=== PATIENT | male | born 1950 | race Caucasian/White ===

== ENCOUNTER 2017-09-09 12:25 | Inpatient (IN) | payer MEDICARE, BC ==
[~2017-09-09] VITALS: Ht 167.6 cm; Wt 92.8 kg
[~2017-09-09 12:25] MED LIST: DOCU100 PO; MAGCIT300 PO; [UNRECOGNIZED DRUG - REMARK]; [UNRECOGNIZED DRUG - REMARK]; [UNRECOGNIZED DRUG - REMARK]
[2017-09-09 13:02] LABS: BASOPHILS ABSOLUTE AUTO 0.05 K/mm3 (0.00-0.23); BASOPHILS PERCENT AUTO 0 % (0-2); EOSINOPHILS ABSOLUTE AUTO 0.17 K/mm3 (0.00-0.68); EOSINOPHILS PERCENT AUTO 1 % (0-6); Hematocrit 41.4 % (37.0-53.0); Hemoglobin 13.8 g/dL (13.5-17.5); IMMATURE GRAN ABSOLUTE AUTO 0.07 K/mm3 (0.00-0.10); IMMATURE GRAN PERCENT AUTO 0 % (0-1); LYMPHOCYTES PERCENT AUTO 11 % (21-46); MONOCYTES ABSOLUTE AUTO 1.56 K/mm3 (0.16-1.47); MONOCYTES PERCENT AUTO 10 % (4-13); Mean Corpuscular HGB 33.1 pg (26.0-34.0); Mean Corpuscular HGB Conc 33.3 g/dL (31.5-36.5); Mean Corpuscular Volume 99 fL (80-100); Mean Platelet Volume 9.7 fL (9.1-12.4); NEUTROPHILS ABSOLUTE AUTO 12.48 K/mm3 (1.96-9.15); NEUTROPHILS PERCENT AUTO 78 % (41-73); Platelet Count 168 K/mm3 (150-400); RDW Coefficient Variation 12.7 % (11.7-14.2); Red Blood Cell Count 4.17 M/mm3 (4.30-5.90); White Blood Cell Count 16.03 K/mm3 (4.00-11.30)
[2017-09-09 13:19] LABS: Ethanol (Alcohol), Blood, Med <3 mg/dL
[2017-09-09 13:21] LABS: Source, Urine Catheter
[2017-09-09 13:27] LABS: Appearance, Urine Clear (Clear); Blood, Urine 1+ (Neg); Color, Urine Yellow (P-Yellow); Glucose Qualitative, Urine Neg (Neg); Ketones, Urine Neg (Neg); Leukocyte Esterase, Urine 1+ (Neg); Nitrite, Urine Neg (Neg); Protein, Urine 2+ (Neg); Urobilinogen, Urine NORM (Normal)
[2017-09-09 13:29] LABS: Alanine Aminotransfer (ALT/SGP 27 U/L (12-78); Albumin, Blood 3.4 g/dL (3.4-5.0); Albumin/Globulin Ratio 0.9 (0.8-1.8); Alk Phos 69 U/L (50-136); Anion Gap 9 mmol/L (6-16); Aspartate Aminotrans (AST/SGOT 35 U/L (12-37); Bilirubin, Total 0.7 mg/dL (0.1-1.0); Blood Urea Nitrogen 57 mg/dL (8-24); Bun/Creatinine Ratio 10.4 (12.0-20.0); CO2, Blood 22 mmol/L (21-32); Calcium, Blood 8.3 mg/dL (8.5-10.1); Chloride, Blood 98 mmol/L (98-108); Creatinine, Blood 5.46 mg/dL (0.60-1.20); Globulin, Blood 3.6 g/dL (2.2-4.0); Glomerular Filtration Rate 11 (60-); Glucose, Blood 112 mg/dL (70-99); Potassium, Blood 5.1 mmol/L (3.5-5.5); Sodium, Blood 129 mmol/L (136-145)
[2017-09-09] MEDS ORDERED: MORP15ER PO (13:39)
[2017-09-09] MEDS ORDERED: Hydrocodone-Ap1 EA23 PO (13:39)
[2017-09-09] MEDS ORDERED: PREG75 PO (13:39)
[2017-09-09] MEDS ORDERED: Prinivil10 MG PO (13:39)
[2017-09-09] MEDS ORDERED: TIOT18 INH (13:40)
[2017-09-09] MEDS ORDERED: GABA300 PO (13:40)
[2017-09-09] MEDS ORDERED: BUDE10.22 INH (13:40)
[2017-09-09 14:02] LABS: Bilirubin, Urine 1+ (Neg); U Amphetamine Screen Not Detected; U Barbituate Screen Not Detected; U Benzodiazapine Screen Not Detected; U Buprenorphine Screen Not Detected; U Cannabinoids Screen Not Detected; U Cocaine Screen Not Detected; U Methadone Screen Not Detected; U Methamphetamine Screen Not Detected; U Opiates Screen DETECTED; U Oxycodone Screen Not Detected; U Phencyclidine Screen Not Detected; U Propoxyphene Screen Not Detected
[2017-09-09 14:04] LABS: Amorphous Light (0-Heavy); Bacteria Few /hpf; Squamous Epithelial Cells Rare /hpf (Few)
[2017-09-09 15:35] LABS: Acetaminophen, Random <2.0 ug/mL (10.0-30.0); Salicylate 2.7 mg/dL (2.8-20.0)
[2017-09-09] MEDS ORDERED: DULO30 PO (16:38)
[2017-09-09] MEDS ORDERED: HYDHCL25 PO (16:38)
[2017-09-09] MEDS ORDERED: IBUP800 PO (16:39)
[2017-09-09] MEDS ORDERED: Zyprexa20 MG PO (16:40)
[2017-09-09] MEDS ORDERED: LITH300C PO (16:40)
[2017-09-10 04:18] LABS: BASOPHILS ABSOLUTE AUTO 0.03 K/mm3 (0.00-0.23); BASOPHILS PERCENT AUTO 0 % (0-2); EOSINOPHILS ABSOLUTE AUTO 0.04 K/mm3 (0.00-0.68); EOSINOPHILS PERCENT AUTO 0 % (0-6); Hematocrit 37.9 % (37.0-53.0); Hemoglobin 12.5 g/dL (13.5-17.5); IMMATURE GRAN ABSOLUTE AUTO 0.08 K/mm3 (0.00-0.10); IMMATURE GRAN PERCENT AUTO 1 % (0-1); LYMPHOCYTES ABSOLUTE AUTO 1.97 K/mm3 (0.84-5.20); LYMPHOCYTES PERCENT AUTO 16 % (21-46); MONOCYTES ABSOLUTE AUTO 1.41 K/mm3 (0.16-1.47); MONOCYTES PERCENT AUTO 11 % (4-13); Mean Corpuscular Volume 100 fL (80-100); Mean Platelet Volume 9.9 fL (9.1-12.4); NEUTROPHILS ABSOLUTE AUTO 8.98 K/mm3 (1.96-9.15); NEUTROPHILS PERCENT AUTO 72 % (41-73); Platelet Count 130 K/mm3 (150-400); RDW Coefficient Variation 12.7 % (11.7-14.2); RDW Standard Deviation 46.7 fL (35.1-46.3); Red Blood Cell Count 3.79 M/mm3 (4.30-5.90); White Blood Cell Count 12.51 K/mm3 (4.00-11.30)
[2017-09-10 04:41] LABS: Alanine Aminotransfer (ALT/SGP 25 U/L (12-78); Albumin, Blood 2.9 g/dL (3.4-5.0); Albumin/Globulin Ratio 0.9 (0.8-1.8); Alk Phos 58 U/L (50-136); Anion Gap 7 mmol/L (6-16); Aspartate Aminotrans (AST/SGOT 37 U/L (12-37); Bilirubin, Total 0.7 mg/dL (0.1-1.0); Blood Urea Nitrogen 37 mg/dL (8-24); Bun/Creatinine Ratio 25.2 (12.0-20.0); CHOL/HDL RATIO 2.2; CO2, Blood 20 mmol/L (21-32); Calcium, Blood 7.6 mg/dL (8.5-10.1); Chloride, Blood 110 mmol/L (98-108); Cholesterol 123 mg/dL (50-200); Creatinine, Blood 1.47 mg/dL (0.60-1.20); Globulin, Blood 3.4 g/dL (2.2-4.0); Glomerular Filtration Rate 51 (60-); Glucose, Blood 96 mg/dL (70-99); HDL Cholesterol 56 mg/dL (>39); LDL/HDL RATIO 0.9; Low Density Lipoprotein Chol 52 mg/dL (0-110); Potassium, Blood 5.1 mmol/L (3.5-5.5); Sodium, Blood 137 mmol/L (136-145); Total Protein, Blood 6.3 g/dL (6.4-8.2); Triglycerides 77 mg/dL (30-160); Vancomycin, Random 10.3 ug/mL; Very Low Density Lipoprot Chol 15 mg/dL (6-32)
[2017-09-11 09:20] LABS: Hematocrit 35.8 % (37.0-53.0); Hemoglobin 12.1 g/dL (13.5-17.5); Mean Corpuscular HGB 33.1 pg (26.0-34.0); Mean Corpuscular HGB Conc 33.8 g/dL (31.5-36.5); Mean Corpuscular Volume 98 fL (80-100); Mean Platelet Volume 9.8 fL (9.1-12.4); Platelet Count 134 K/mm3 (150-400); RDW Coefficient Variation 12.2 % (11.7-14.2); Red Blood Cell Count 3.66 M/mm3 (4.30-5.90); White Blood Cell Count 12.56 K/mm3 (4.00-11.30)
[2017-09-11 09:34] LABS: Anion Gap 9 mmol/L (6-16); Blood Urea Nitrogen 19 mg/dL (8-24); Bun/Creatinine Ratio 23.9 (12.0-20.0); CO2, Blood 19 mmol/L (21-32); Calcium, Blood 8.2 mg/dL (8.5-10.1); Chloride, Blood 115 mmol/L (98-108); Creatinine, Blood 0.79 mg/dL (0.60-1.20); Glomerular Filtration Rate >60 (60-); Glucose, Blood 107 mg/dL (70-99); Sodium, Blood 143 mmol/L (136-145)
[2017-09-11 13:38] LABS: Lithium 0.29 mmol/L (0.60-1.20)
[2017-09-13 05:10] LABS: Anion Gap 8 mmol/L (6-16); Blood Urea Nitrogen 9 mg/dL (8-24); Bun/Creatinine Ratio 14.5 (12.0-20.0); CO2, Blood 23 mmol/L (21-32); Calcium, Blood 8.6 mg/dL (8.5-10.1); Chloride, Blood 110 mmol/L (98-108); Creatinine, Blood 0.62 mg/dL (0.60-1.20); Glomerular Filtration Rate >60 (60-); Glucose, Blood 104 mg/dL (70-99); Potassium, Blood 3.9 mmol/L (3.5-5.5); Sodium, Blood 141 mmol/L (136-145)
[2017-09-15 04:20] LABS: Hematocrit 31.5 % (37.0-53.0); Hemoglobin 10.9 g/dL (13.5-17.5); Mean Corpuscular HGB Conc 34.6 g/dL (31.5-36.5); Mean Corpuscular Volume 96 fL (80-100); Mean Platelet Volume 9.4 fL (9.1-12.4); Platelet Count 123 K/mm3 (150-400); RDW Coefficient Variation 12.1 % (11.7-14.2); RDW Standard Deviation 42.8 fL (35.1-46.3); White Blood Cell Count 11.24 K/mm3 (4.00-11.30)
[2017-09-15 04:44] LABS: Anion Gap 8 mmol/L (6-16); Blood Urea Nitrogen 10 mg/dL (8-24); Bun/Creatinine Ratio 16.8 (12.0-20.0); CO2, Blood 26 mmol/L (21-32); Calcium, Blood 7.9 mg/dL (8.5-10.1); Chloride, Blood 109 mmol/L (98-108); Glomerular Filtration Rate >60 (60-); Glucose, Blood 94 mg/dL (70-99); Potassium, Blood 3.4 mmol/L (3.5-5.5); Sodium, Blood 143 mmol/L (136-145)
[2017-09-18] MEDS ORDERED: MELA3 PO ×2 (11:25)
[2017-09-18] MEDS ORDERED: AMLO5 PO (11:26)
[2017-09-18 13:48] LABS: BASOPHILS ABSOLUTE AUTO 0.03 K/mm3 (0.00-0.23); BASOPHILS PERCENT AUTO 0 % (0-2); EOSINOPHILS ABSOLUTE AUTO 0.27 K/mm3 (0.00-0.68); EOSINOPHILS PERCENT AUTO 4 % (0-6); Hematocrit 35.5 % (37.0-53.0); Hemoglobin 11.9 g/dL (13.5-17.5); IMMATURE GRAN ABSOLUTE AUTO 0.04 K/mm3 (0.00-0.10); IMMATURE GRAN PERCENT AUTO 1 % (0-1); LYMPHOCYTES ABSOLUTE AUTO 1.58 K/mm3 (0.84-5.20); LYMPHOCYTES PERCENT AUTO 23 % (21-46); MONOCYTES ABSOLUTE AUTO 0.67 K/mm3 (0.16-1.47); MONOCYTES PERCENT AUTO 10 % (4-13); Mean Corpuscular HGB 32.3 pg (26.0-34.0); Mean Corpuscular HGB Conc 33.5 g/dL (31.5-36.5); Mean Corpuscular Volume 97 fL (80-100); Mean Platelet Volume 8.9 fL (9.1-12.4); NEUTROPHILS ABSOLUTE AUTO 4.25 K/mm3 (1.96-9.15); NEUTROPHILS PERCENT AUTO 62 % (41-73); Platelet Count 197 K/mm3 (150-400); RDW Coefficient Variation 12.2 % (11.7-14.2); RDW Standard Deviation 43.2 fL (35.1-46.3); Red Blood Cell Count 3.68 M/mm3 (4.30-5.90); White Blood Cell Count 6.84 K/mm3 (4.00-11.30)
[2017-09-18 14:33] LABS: Lithium 0.33 mmol/L (0.60-1.20)
[2017-09-18 14:41] LABS: Albumin, Blood 2.4 g/dL (3.4-5.0); Anion Gap 6 mmol/L (6-16); Blood Urea Nitrogen 9 mg/dL (8-24); Bun/Creatinine Ratio 12.4 (12.0-20.0); CO2, Blood 29 mmol/L (21-32); Calcium, Blood 8.7 mg/dL (8.5-10.1); Chloride, Blood 105 mmol/L (98-108); Creatinine, Blood 0.73 mg/dL (0.60-1.20); Free Thyroxine 1.38 ng/dL (0.70-1.60); Glomerular Filtration Rate >60 (60-); Glucose, Blood 127 mg/dL (70-99); Phosphorus, Blood 2.5 mg/dL (2.5-4.9); Potassium, Blood 3.7 mmol/L (3.5-5.5); Sodium, Blood 140 mmol/L (136-145)
[2017-09-18 14:46] LABS: Triiodothyronine, Free 2.07 pg/mL (2.18-3.98)
[2017-09-19] MEDS ORDERED: ASPERCREME1 EACH TOP (11:57)
[2017-09-19] MEDS ORDERED: HYDR1TAB94 PO (11:57)
== END 2017-09-19 12:35 | DRG 871 ==
LOC: ER 12:25 → ICUW 15:11 → MEDS 15:11 → PCU 15:11 → ICUW 09-10 13:55 → PCU 09-15 16:35 → MEDS 09-17 18:42 → ENPENDDIS 09-19 11:00 → MEDS 09-19 12:35
PROVIDERS: Family Medicine; Internal Medicine
DX: A41.9 Sepsis, unspecified organism (principal); G92 Toxic encephalopathy; N17.9 Acute kidney failure, unspecified; E87.1 Hypo-osmolality and hyponatremia; F11.20 Opioid dependence, uncomplicated; S09.90XA Unspecified injury of head, initial encounter; E86.0 Dehydration; F10.20 Alcohol dependence, uncomplicated; F31.9 Bipolar disorder, unspecified; I10 Essential (primary) hypertension; G89.4 Chronic pain syndrome; W19.XXXA Unspecified fall, initial encounter; R44.1 Visual hallucinations
CPT/HCPCS: 31720; 36415; 51701; 51702; 51798; 70450; 70551; 71045; 71046; 80048; 80053; 80061; 80069; 80178; 80202; 81001; 82140; 82947; 83605; 84145; 84439; 84443; 84481; 85025; 85027; 85651; 86140; 87040; 87086; 92610; 93005; 93010; 94640; 94760; 96361; 96374; 97110; 97116; 97163; 97166; 97530; 97535; 99285; G0480; G8978; G8979; G8987; G8988; G8996; G8997; G8998; J0360; J0696; J1630; J1650; J2001; J2060; J3010; J3370; J3411; J3475; J3480; J7030; J7042; J7050

== ENCOUNTER 2017-09-19 13:56 | Observation (INO) | payer MEDICARE, BC ==
[~2017-09-19] VITALS: Ht 180.3 cm; Wt 86.7 kg
[~2017-09-19 13:56] MED LIST changes: +AMLO5 PO; +ASPERCREME1 EACH TOP; +BUDE10.22 INH; +DULO30 PO; +GABA300 PO; +HYDHCL25 PO; +HYDR1TAB94 PO; +Hydrocodone-Ap1 EA23 PO; +IBUP800 PO; +LITH300C PO; +MELA3 PO; +MORP15ER PO; +PREG75 PO; +Prinivil10 MG PO; +TIOT18 INH; +Zyprexa20 MG PO
[2017-09-19 16:25] LABS: Calcium, Ionized (POC) 1.15 mmol/L (1.10-1.46); Chloride (POC) 102 mmol/L (98-108); Creatinine (POC) 0.6 mg/dL (0.8-1.3); Glucose (ISTAT POC) 104 mg/dL (70-99); Hemoglobin (POC) 12.9 g/dL (13.5-17.5); Potassium (POC) 3.9 mmol/L (3.5-5.5); Sodium (POC) 138 mmol/L (135-148); Total CO2 (POC) 27 mmol/L (21-32)
[2017-09-26] MEDS ORDERED: QUET100 PO (14:55)
== END 2017-09-26 15:20 | disposition home or self-care (01) ==
LOC: ER 13:56 → MEDS 13:57
PROVIDERS: Emergency Medicine
DX: G92 Toxic encephalopathy (principal); N17.9 Acute kidney failure, unspecified; I10 Essential (primary) hypertension; G89.29 Other chronic pain; F31.9 Bipolar disorder, unspecified; M17.12 Unilateral primary osteoarthritis, left knee; F41.8 Other specified anxiety disorders; R26.9 Unspecified abnormalities of gait and mobility; K59.00 Constipation, unspecified; M19.012 Primary osteoarthritis, left shoulder; M19.011 Primary osteoarthritis, right shoulder; R26.2 Difficulty in walking, not elsewhere classified; R44.1 Visual hallucinations; Z88.8 Allergy status to other drugs, medicaments and biological substances; Z79.899 Other long term (current) drug therapy; W19.XXXA Unspecified fall, initial encounter
CPT/HCPCS: 36415; 80047; 85014; 94640; 94760; 97110; 97116; 97162; 97165; 97535; 99285; G0378; G0515; G8978; G8979; G8987; G8988

== ENCOUNTER 2019-01-18 21:38 | Inpatient (IN) | payer MEDICARE ==
[~2019-01-18] VITALS: Ht 172.7 cm; Wt 116.3 kg
[~2019-01-18 21:38] MED LIST changes: +Atarax10 MG; +BUSP5; +HYDCHL25 PO; +LISI5 PO; +LITH300C; +Lasix40 MG PO; +MAGOXI400 PO; +Norco 10-325 T1 EACH PO; +QUET100 PO
[2019-01-18 22:07] LABS: BASOPHILS ABSOLUTE AUTO 0.06 K/mm3 (0.00-0.23); BASOPHILS PERCENT AUTO 1 % (0-2); EOSINOPHILS ABSOLUTE AUTO 0.31 K/mm3 (0.00-0.68); EOSINOPHILS PERCENT AUTO 3 % (0-6); Hematocrit 37.4 % (37.0-53.0); Hemoglobin 12.1 g/dL (13.5-17.5); IMMATURE GRAN ABSOLUTE AUTO 0.05 K/mm3 (0.00-0.10); IMMATURE GRAN PERCENT AUTO 1 % (0-1); LYMPHOCYTES PERCENT AUTO 19 % (21-46); MONOCYTES ABSOLUTE AUTO 1.02 K/mm3 (0.16-1.47); MONOCYTES PERCENT AUTO 9 % (4-13); Mean Corpuscular HGB 34.6 pg (26.0-34.0); Mean Corpuscular HGB Conc 32.4 g/dL (31.5-36.5); Mean Corpuscular Volume 107 fL (80-100); Mean Platelet Volume 9.7 fL (9.1-12.4); NEUTROPHILS ABSOLUTE AUTO 7.45 K/mm3 (1.96-9.15); NEUTROPHILS PERCENT AUTO 68 % (41-73); Platelet Count 224 K/mm3 (150-400); RDW Coefficient Variation 13.2 % (11.7-14.2); RDW Standard Deviation 52.5 fL (35.1-46.3); White Blood Cell Count 10.99 K/mm3 (4.00-11.30)
[2019-01-18 22:21] LABS: Alanine Aminotransfer (ALT/SGP 17 U/L (12-78); Albumin, Blood 3.6 g/dL (3.4-5.0); Albumin/Globulin Ratio 1.1 (0.8-1.8); Alk Phos 92 U/L (50-136); Anion Gap 6 mmol/L (6-16); Aspartate Aminotrans (AST/SGOT 15 U/L (12-37); Bilirubin, Total 0.6 mg/dL (0.1-1.0); Blood Urea Nitrogen 22 mg/dL (8-24); Bun/Creatinine Ratio 12.9 (12.0-20.0); CO2, Blood 29 mmol/L (21-32); Calcium, Blood 8.4 mg/dL (8.5-10.1); Chloride, Blood 102 mmol/L (98-108); Globulin, Blood 3.2 g/dL (2.2-4.0); Glomerular Filtration Rate 43 (60-); Glucose, Blood 101 mg/dL (70-99); Potassium, Blood 4.4 mmol/L (3.5-5.5); Sodium, Blood 137 mmol/L (136-145); Total Protein, Blood 6.8 g/dL (6.4-8.2); Troponin I <0.015 ng/mL (0.000-0.040)
[2019-01-18 22:49] LABS: PCO2 Arterial 52.5 mmHg (35-45); PO2 Arterial 79.9 mmHg (80-100); pH Blood Arterial 7.35 (7.35-7.45)
[2019-01-19 03:21] LABS: Adenovirus Not Detected (NOT DETECT); Bordetella pertussis Not Detected (NOT DETECT); Chlamydophila pneumoniae Not Detected (NOT DETECT); Coronavirus 229E Not Detected (NOT DETECT); Coronavirus HKU1 Not Detected (NOT DETECT); Coronavirus NL63 Not Detected (NOT DETECT); Coronavirus OC43 Not Detected (NOT DETECT); Human Metapneumovirus Not Detected (NOT DETECT); Human Rhinovirus/Enterovirus Not Detected (NOT DETECT); Influenza A Not Detected (NOT DETECT); Influenza A/2009-H1 Not Detected (NOT DETECT); Influenza A/H1 Not Detected (NOT DETECT); Influenza A/H3 Not Detected (NOT DETECT); Influenza B Not Detected (NOT DETECT); Mycoplasma pneumoniae Not Detected (NOT DETECT); Parainfluenza Virus 1 Not Detected (NOT DETECT); Parainfluenza Virus 2 Not Detected (NOT DETECT); Parainfluenza Virus 3 Not Detected (NOT DETECT); Parainfluenza Virus 4 Not Detected (NOT DETECT); Respiratory Syncytial Virus Not Detected (NOT DETECT)
[2019-01-19 06:27] LABS: Hematocrit 38.8 % (37.0-53.0); Hemoglobin 12.7 g/dL (13.5-17.5); Mean Corpuscular HGB 34.9 pg (26.0-34.0); Mean Corpuscular HGB Conc 32.7 g/dL (31.5-36.5); Mean Corpuscular Volume 107 fL (80-100); Mean Platelet Volume 9.7 fL (9.1-12.4); Platelet Count 224 K/mm3 (150-400); RDW Standard Deviation 51.3 fL (35.1-46.3); Red Blood Cell Count 3.64 M/mm3 (4.30-5.90); White Blood Cell Count 10.56 K/mm3 (4.00-11.30)
[2019-01-19 06:57] LABS: Albumin, Blood 3.4 g/dL (3.4-5.0); Albumin/Globulin Ratio 0.9 (0.8-1.8); Bilirubin, Total 0.6 mg/dL (0.1-1.0); Bun/Creatinine Ratio 18.1 (12.0-20.0); Calcium, Blood 8.5 mg/dL (8.5-10.1); Creatinine, Blood 1.44 mg/dL (0.60-1.20); Globulin, Blood 3.8 g/dL (2.2-4.0); Potassium, Blood 4.8 mmol/L (3.5-5.5); Total Protein, Blood 7.2 g/dL (6.4-8.2)
[2019-01-19 07:26] LABS: Lithium 1.64 mmol/L (0.60-1.20)
--- NOTE | 2019-01-19 07:36 | NUR ---
CRITICAL LITHIUM LEVEL LAB NOTIFIED RN OF CRITICAL LITHIUM LEVEL THIS AM OF 1.64 DURING SHIFT CHANGE REPORT. ONCOMING RN MARLA HEBERT STATED SHE WOULD NOTIFY THE DR OF THE CRTICIAL LITHIUM LEVEL THIS MORNING.
--- NOTE | 2019-01-19 07:39 | NUR ---
ADMIT NOTE/SHIFT ASSESSMENT PATIENT ADMITTED EARLIER THIS SHIFT FROM THE ER. PATIENT WAS SLID OVER FROM THE GURNEY TO THE BED VIA SLIDER SHEET. PATIENT DROWSY BUT EASILY AWAKENS TO VERBAL STIMULI AND TO TOUCH UPON ADMIT. PATIENT ABLE TO STATE NAME AND BIRTHDATE BUT UNABLE TO STATE WHERE HE IS, WHY HE'S HERE, OR WHO THE PRESIDENT IS. PATIENT'S BREATHING LABORED UPON ADMIT. PATIENT WORE BIPAP FOR SEVERAL HOURS AFTER ADMIT. THIS MORNING PATIENT OFF BIPAP ON 2L O2 AND HIS BREATHING IS MUCH LESS LABORED. PATIENT REPORTS HE IS FEELING MUCH BETTER. PATIENT AWARE OF WHERE HE IS AND WHY HE'S HERE THIS MORNING. PATIENT CURRENTLY RESTING IN BED. REPORT GIVEN TO ONCOMING RN.
--- NOTE | 2019-01-19 07:52 | NUR ---
RECEIVED REPORT AND ASSUMED CARE OF PATIENT. HE IS SITTING UP IN BED AND HAS SOME CONFUSION AT THIS TIME. NOTED TREMOR IN HANDS B/L, ASKED PT IF THAT IS NEW FOR HIM, HE STATES, "I'VE HAD THIS FOR A FEW WEEKS, IT'S GETTING WORSE AND I CAN'T DO THINGS VERY WELL." NOTIFIED DR CAMPO OF CRITICAL HIGH LITHIUM LEVEL 1.64, WILL CONTINUE TO MONITOR AND AWAIT ADDITIONAL ORDERS FROM DR. HENOK TALAVERA PER DOCTOR.
--- NOTE | 2019-01-19 07:59 | NUR ---
DR CAMPO ORDERED LR TO START AT 150 ML/HR. ORDERED PLACED BY THIS RN, WILL AWAIT VERIFICATION AND START.
--- NOTE | 2019-01-19 12:17 | NUR ---
echocardiogram complete
[2019-01-19 17:17] LABS: Source, Urine Clean Catch
[2019-01-19 17:25] LABS: Bilirubin, Urine Neg (Neg); Blood, Urine Neg (Neg); Glucose Qualitative, Urine Neg (Neg); Ketones, Urine Neg (Neg); Leukocyte Esterase, Urine Neg (Neg); Nitrite, Urine Neg (Neg); Protein, Urine Neg (Neg); Specific Gravity, Urine 1.025 (1.003-1.022); Urobilinogen, Urine NORM (Normal)
[2019-01-19 17:32] LABS: Appearance, Urine Clear (Clear); Color, Urine Yellow (P-Yellow)
[2019-01-19 17:36] LABS: U Amphetamine Screen Not Detected; U Barbituate Screen Not Detected; U Benzodiazapine Screen Not Detected; U Buprenorphine Screen Not Detected; U Cannabinoids Screen Not Detected; U Cocaine Screen Not Detected; U Methadone Screen Not Detected; U Methamphetamine Screen Not Detected; U Opiates Screen DETECTED; U Oxycodone Screen Not Detected; U Phencyclidine Screen Not Detected
[2019-01-19 17:37] LABS: U Propoxyphene Screen Not Detected
--- NOTE | 2019-01-19 18:54 | NUR ---
PT HAD A GOOD DAY, HE HAS BEEN OCCASIONALLY CONFUSED THROUGHOUT THE DAY. PT IS UP WITH FWW AND 2 PERSON ASSIST TO BATHROOM. O2 HAS BEEN OFF FOR MOST OF THE DAY, EDUCATED PT REGARDING O2 SAT MONITOR ALARM AND TAKING DEEP BREATH IN/OUT WHEN THE ALARM GOES OFF. PT CONTINUES TO HAVE O2 SAT >92% THROUGHOUT WITH OCCASIONAL DESAT, BUT QUICK RECOVERY WITHOUT OXYGEN. CONTINUING LR AT 100 ML/HR. WILL CONTINUE TO MONITOR AND GIVE REPORT TO MATTHEW DRAPER.
[2019-01-19] MEDS ORDERED: MORP15ER PO (22:58)
[2019-01-19] MEDS ORDERED: HYDR1TAB94 PO (23:03)
[2019-01-19] MEDS ORDERED: GABA400 PO (23:05)
[2019-01-19] MEDS ORDERED: BUDESONIDE INH (23:08)
[2019-01-19] MEDS ORDERED: FORMOTEROL INH (23:08)
--- NOTE | 2019-01-19 23:18 | NUR ---
UPDATE NOTIFIED ROMEO MENDIOLA THAT THERE WAS NO RECHECK FOR PATIENT'S LITHIUM LEVELS ORDERED AT THIS TIME. MAURY STATED THAT THE ATTENDING PHYSICIAN TOMORROW WOULD MAKE THE DECISION TO WHETHER OR NOT A RECHECK WAS NEEDED TOMORROW.
[2019-01-19] MEDS ORDERED: ALBU3IS INH (23:29)
[2019-01-19] MEDS ORDERED: ALBU90OI INH (23:32)
[2019-01-20] MEDS ORDERED: LITH300ER PO (01:19)
[2019-01-20] MEDS ORDERED: FURO40 PO (01:24)
--- NOTE | 2019-01-20 06:22 | NUR ---
SHIFT SUMMARY PATIENT PLEASENT AND COOPERATIVE THROUGHOUT THE NIGHT. PATIENT ALERT BUT HAS PERIIODS OF FORGETFULNESS AND CONFUSION. PATIENT HAD DIFFICULTY STATING WHERE HE WAS AND THE DATE. PATIENT'S BREATHING CONTINUES TO BE LABORED BUT PATIENT DID NOT REQUIRE THE BIPAP LAST NIGHT. PATIENT ON RA MOST OF THE NIGHT BUT DOES USE 2L O2 NEEDED TO KEEP STATS GREATER THAN 92%. PATIENT MEDICATED FOR PAIN PER EMAR. PATIENT CONTINUES TO COMPLAIN ABOUT SHAKINESS THAT HAS BEEN ONGOING FOR THE LAST SEVERAL WEEKS. VITAL SIGNS CHARTED. WILL CONTINUE TO MONITOR PATIENT AND REPORT TO ONCOMING RN.
[2019-01-20 08:28] LABS: Anion Gap 5 mmol/L (6-16); Blood Urea Nitrogen 33 mg/dL (8-24); Bun/Creatinine Ratio 27.7 (12.0-20.0); CO2, Blood 26 mmol/L (21-32); Chloride, Blood 104 mmol/L (98-108); Creatinine, Blood 1.19 mg/dL (0.60-1.20); Glomerular Filtration Rate >60 (60-); Glucose, Blood 141 mg/dL (70-99); Potassium, Blood 4.4 mmol/L (3.5-5.5); Sodium, Blood 135 mmol/L (136-145)
--- NOTE | 2019-01-20 16:38 | NUR ---
SHIFT SUMMARY PT RESTING IN BED THROUGHOUT THE DAY. VSS. ALERT AND ORIENTED TO SELF AND PLACE, FOLLOWING COMMANDS APPROPRIATELY. PT YELLING OUT FOR HELP OFF AND ON TODAY. PT VERY ANXIOUS THIS MORNING, C/O 8/10 CHEST PAIN WITH BREATHING, MEDICATED WITH PRN PAIN MEDS, SEE EMAR. PT WITH DYSPNEA AT REST, LUNG SOUNDS COARSE WITH EXPIRATORY WHEEZES. AUDIBLE WHEEZES NOTED, IV FLUIDS STOPPED, LASIX ORDER RECEIVED. PT UP TO BEDSIDE COMMODE WITH 1-2 PERSON ASSIST. BM X2 TODAY. VOIDING PER URINAL WITH ASSISTANCE. 2+ PITTING EDEMA TO BLE. WILL CONTINUE TO MONITOR.
[2019-01-21 04:40] LABS: Anion Gap 7 mmol/L (6-16); Blood Urea Nitrogen 35 mg/dL (8-24); Bun/Creatinine Ratio 30.4 (12.0-20.0); CO2, Blood 27 mmol/L (21-32); Calcium, Blood 9.1 mg/dL (8.5-10.1); Chloride, Blood 104 mmol/L (98-108); Creatinine, Blood 1.15 mg/dL (0.60-1.20); Glomerular Filtration Rate >60 (60-); Glucose, Blood 147 mg/dL (70-99); Potassium, Blood 4.1 mmol/L (3.5-5.5); Sodium, Blood 138 mmol/L (136-145)
--- NOTE | 2019-01-21 06:36 | NUR ---
SHIFT SUMMARY PT HAS REMAINED ALERT AND ORIENTED TO SELF, PLACE, YEAR, AND FOLLOWING DIRECTIONS. PT IS DISORIENTED TO CURRENT DATE AND REQUIRES FREQUENT REORIENTATION TO SITUATION AND APPROPRIATE CALL LIGHT USE. CONTINUES TO YELL OUT INTO HALLWAY FOR HELP. PT AMBULATES WITH ONE PERSON ASSIST TO BEDSIDE COMMODE AND FWW. O2 SATS REMAIN >90% ON RA. PT BECOMES TACHYPNEIC AND HAS MILD AUDITORY WHEEZES IN UPPER RESPIRATORY TRACT WITH PERIODS OF ANXIETY- LUNG SOUNDS WITH WHEEZES TO [place] THROUGHOUT SHIFT, BUT CLEAR IN RUL AND DIMINISHED BASES. PT CONTINUES TO HAVE EPISODES OF ANXIETY AND EXPRESSES CONCERN ABOUT CURRENT HOME/LIVING SITUATION. SS CONSULT PLACED FOR POSIBLE DISCHARGE PLANNING. PT MEDICATED ONCE FOR "PAIN WITH BREATHING" THAT DECREASED WITH ORDERED MEDICATIONS. NO OTHER CHANGES NOTED FROM INITIAL ASSESSMENT. WILL CONTINUE TO MONITOR AND REPORT TO ONCOMING SHIFT RN. BED IN LOW POSITION, CALL LIGHT IN REACH. BED ALARM SET FOR SAFETY.
--- NOTE | 2019-01-21 10:00 | NUR ---
AM NOTE. ASSUMED CARE OF PT APROX 0700, PT IS A&Ox4 BUT FORGETFUL AT TIMES. PT DENIES ANY CHEST PAIN/PRESSURE,N/V OR SOB. PT'S VS STABLE AT THIS TIME. PT IS VERY ANXIOUS TO GET HOME STATING HE IS THE ONLY CAREGIVER FOR HIS . PT IS ABLE TO STATE THE YEAR, WHERE HE IS, WHY AND WHAT CITY. CALL LIGHT IN REACH, BED LOCKED AND LOW WITH BED ALARM ON WILL CONTINUE TO MONITOR.
[2019-01-21] MEDS ORDERED: BUDE6HFA INH (10:21)
[2019-01-21] MEDS ORDERED: SEEBRI NEOHALER INH (10:23)
[2019-01-21] MEDS ORDERED: Prednisone10 MG PO (10:28)
[2019-01-21] MEDS ORDERED: Seroquel Xr150 MG PO (10:31)
== END 2019-01-21 11:20 | disposition home or self-care (01) | DRG 682 ==
LOC: ER 21:38 → PCU 01-19 00:48
PROVIDERS: Emergency Medicine; Internal Medicine; ADMIT Internal Medicine
PROC: 5A09357 Assistance with Respiratory Ventilation, Less than 24 Consecutive Hours, Continuous Positive Airway Pressure (ICD-10-PCS; principal; 2019-01-18)
DX: N17.9 Acute kidney failure, unspecified (principal); G92 Toxic encephalopathy; J96.01 Acute respiratory failure with hypoxia; J44.1 Chronic obstructive pulmonary disease with (acute) exacerbation; I50.32 Chronic diastolic (congestive) heart failure; T56.891A Toxic effect of other metals, accidental (unintentional), initial encounter; E86.0 Dehydration; F31.9 Bipolar disorder, unspecified; I11.0 Hypertensive heart disease with heart failure; Y92.9 Unspecified place or not applicable; F17.210 Nicotine dependence, cigarettes, uncomplicated; T50.2X5A Adverse effect of carbonic-anhydrase inhibitors, benzothiadiazides and other diuretics, initial encounter
CPT/HCPCS: 0099U; 36415; 36600; 71045; 71046; 80048; 80053; 80178; 81003; 82140; 82803; 83605; 83690; 83880; 84145; 84484; 85025; 85027; 85610; 87040; 93005; 93010; 93306; 94640; 94660; 94760; 94762; 96361; 96365; 96367; 96374; 96375; 99284-25; 99285-25; A9270-GY; C9113; G0480; J0456; J0696; J1100; J1650; J1940; J1956; J2930; J7030; J7050; J7120

== ENCOUNTER 2019-01-22 15:18 | Inpatient (IN) | payer MEDICARE ==
[~2019-01-22] VITALS: Ht 165.1 cm; Wt 107.1 kg
[~2019-01-22 15:18] MED LIST changes: +ALBU3IS INH; +ALBU90OI INH; +BUDE6HFA INH; +BUDESONIDE INH; +FORMOTEROL INH; +FURO40 PO; +GABA400 PO; +LITH300ER PO; +Prednisone10 MG PO; +SEEBRI NEOHALER INH; +Seroquel Xr150 MG PO
[2019-01-22 15:39] LABS: BASOPHILS ABSOLUTE AUTO 0.03 K/mm3 (0.00-0.23); BASOPHILS PERCENT AUTO 0 % (0-2); EOSINOPHILS ABSOLUTE AUTO 0.02 K/mm3 (0.00-0.68); EOSINOPHILS PERCENT AUTO 0 % (0-6); Hematocrit 36.4 % (37.0-53.0); IMMATURE GRAN PERCENT AUTO 1 % (0-1); LYMPHOCYTES ABSOLUTE AUTO 3.28 K/mm3 (0.84-5.20); LYMPHOCYTES PERCENT AUTO 20 % (21-46); MONOCYTES ABSOLUTE AUTO 1.78 K/mm3 (0.16-1.47); MONOCYTES PERCENT AUTO 11 % (4-13); Mean Corpuscular HGB 34.5 pg (26.0-34.0); Mean Corpuscular Volume 105 fL (80-100); Mean Platelet Volume 9.8 fL (9.1-12.4); NEUTROPHILS ABSOLUTE AUTO 11.42 K/mm3 (1.96-9.15); NEUTROPHILS PERCENT AUTO 68 % (41-73); NRBC ABSOLUTE 0.05 K/mm3 (0.00-0.02); NRBC Auto 0.3 /100 WBC (0.0-0.2); Platelet Count 230 K/mm3 (150-400); RDW Coefficient Variation 13.2 % (11.7-14.2); RDW Standard Deviation 50.8 fL (35.1-46.3); Red Blood Cell Count 3.48 M/mm3 (4.30-5.90); White Blood Cell Count 16.73 K/mm3 (4.00-11.30)
[2019-01-22 15:58] LABS: Albumin, Blood 3.5 g/dL (3.4-5.0); Albumin/Globulin Ratio 1.1 (0.8-1.8); Bilirubin, Total 0.4 mg/dL (0.1-1.0); Bun/Creatinine Ratio 23.9 (12.0-20.0); Calcium, Blood 8.6 mg/dL (8.5-10.1); Creatinine, Blood 1.38 mg/dL (0.60-1.20); Globulin, Blood 3.1 g/dL (2.2-4.0); Potassium, Blood 3.9 mmol/L (3.5-5.5); Total Protein, Blood 6.6 g/dL (6.4-8.2)
[2019-01-22 16:31] LABS: Source, Urine Catheter
[2019-01-22 16:33] LABS: Bilirubin, Urine Neg (Neg); Blood, Urine Neg (Neg); Glucose Qualitative, Urine Neg (Neg); Ketones, Urine Neg (Neg); Leukocyte Esterase, Urine Neg (Neg); Nitrite, Urine Neg (Neg); Protein, Urine Neg (Neg); Specific Gravity, Urine 1.015 (1.003-1.022); Urobilinogen, Urine NORM (Normal)
[2019-01-22 16:39] LABS: Appearance, Urine Clear (Clear); Color, Urine Yellow (P-Yellow)
[2019-01-22 20:20] LABS: Thyroid Stimulating Hormone 3.86 uIU/mL (0.360-4.800)
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
--- NOTE | 2019-01-22 23:55 | NUR ---
UA COLLECTED FOR TOX SCREEN AND SENT TO LAB.
[2019-01-23 00:18] LABS: U Amphetamine Screen Not Detected; U Barbituate Screen Not Detected; U Benzodiazapine Screen Not Detected; U Buprenorphine Screen Not Detected; U Cannabinoids Screen Not Detected; U Cocaine Screen Not Detected; U Methadone Screen Not Detected; U Methamphetamine Screen Not Detected; U Opiates Screen DETECTED; U Oxycodone Screen Not Detected; U Phencyclidine Screen Not Detected; U Propoxyphene Screen Not Detected
--- NOTE | 2019-01-23 03:03 | NUR ---
PATIENT AWAKE IN ROOM ASKING FOR PUDDING AND GIVEN. CALL LIGHT IN REACH.
--- NOTE | 2019-01-23 04:14 | NUR ---
SHIFT SUMMARY PATIENT HAD NO ACUTE CHANGES OBSERVED THIS SHIFT. AXOX 2 TO SELF AND DAY OF THE WEEK. DID NOT KNOW YEAR, DATE, OR PLACE. ON 3L O2 NC. UA COLLECTED AND SENT TO LAB. PIV REMAINS INTACT. LEVAQUIN INFUSED ON ADMIT FOLLOWED BY IV THIAMINE. ONE ASSIST TO BR. RT IN FOR BREATHING TX. SOLU-MEDROL GIVEN PER EMAR. VSS/AFEBRILE. DENIES PAIN, SOB, AND N/V. MRI TODAY AND FORM FILLED OUT IN CHART AND FAXED. CALL LIGHT IN REACH. BED IN LOWEST POSITION. WILL CONTINUE TO MONITOR UNTIL DAY SHIFT NURSE ASSUMES CARE.
[2019-01-23 04:58] LABS: BASOPHILS ABSOLUTE AUTO 0.02 K/mm3 (0.00-0.23); BASOPHILS PERCENT AUTO 0 % (0-2); EOSINOPHILS ABSOLUTE AUTO 0.01 K/mm3 (0.00-0.68); EOSINOPHILS PERCENT AUTO 0 % (0-6); Hematocrit 39.2 % (37.0-53.0); Hemoglobin 12.7 g/dL (13.5-17.5); IMMATURE GRAN ABSOLUTE AUTO 0.16 K/mm3 (0.00-0.10); IMMATURE GRAN PERCENT AUTO 2 % (0-1); LYMPHOCYTES ABSOLUTE AUTO 1.39 K/mm3 (0.84-5.20); LYMPHOCYTES PERCENT AUTO 13 % (21-46); MONOCYTES ABSOLUTE AUTO 0.36 K/mm3 (0.16-1.47); MONOCYTES PERCENT AUTO 3 % (4-13); Mean Corpuscular HGB Conc 32.4 g/dL (31.5-36.5); Mean Corpuscular Volume 105 fL (80-100); NEUTROPHILS ABSOLUTE AUTO 8.67 K/mm3 (1.96-9.15); NEUTROPHILS PERCENT AUTO 82 % (41-73); NRBC ABSOLUTE 0.03 K/mm3 (0.00-0.02); NRBC Auto 0.3 /100 WBC (0.0-0.2); Platelet Count 217 K/mm3 (150-400); RDW Coefficient Variation 13.2 % (11.7-14.2); RDW Standard Deviation 50.9 fL (35.1-46.3); Red Blood Cell Count 3.74 M/mm3 (4.30-5.90); White Blood Cell Count 10.61 K/mm3 (4.00-11.30)
[2019-01-23 05:13] LABS: Anion Gap 5 mmol/L (6-16); Blood Urea Nitrogen 30 mg/dL (8-24); Bun/Creatinine Ratio 24.2 (12.0-20.0); CO2, Blood 28 mmol/L (21-32); Calcium, Blood 8.8 mg/dL (8.5-10.1); Chloride, Blood 106 mmol/L (98-108); Creatinine, Blood 1.24 mg/dL (0.60-1.20); Glomerular Filtration Rate >60 (60-); Glucose, Blood 123 mg/dL (70-99); Potassium, Blood 4.7 mmol/L (3.5-5.5); Sodium, Blood 139 mmol/L (136-145)
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
--- NOTE | 2019-01-23 18:37 | NUR ---
NO ACUTE CHANGES. PATIENT IS ALERT BUT NOT ALWAYS ORIENTED BEYOND SELF. HE IS PLEASANT AND COOPERATIVE WITH STAFF.
[2019-01-24 05:02] LABS: BASOPHILS ABSOLUTE AUTO 0.02 K/mm3 (0.00-0.23); BASOPHILS PERCENT AUTO 0 % (0-2); EOSINOPHILS PERCENT AUTO 0 % (0-6); Hematocrit 39.1 % (37.0-53.0); Hemoglobin 13.2 g/dL (13.5-17.5); IMMATURE GRAN ABSOLUTE AUTO 0.24 K/mm3 (0.00-0.10); IMMATURE GRAN PERCENT AUTO 2 % (0-1); LYMPHOCYTES ABSOLUTE AUTO 1.35 K/mm3 (0.84-5.20); LYMPHOCYTES PERCENT AUTO 9 % (21-46); MONOCYTES ABSOLUTE AUTO 0.46 K/mm3 (0.16-1.47); MONOCYTES PERCENT AUTO 3 % (4-13); Mean Corpuscular HGB Conc 33.8 g/dL (31.5-36.5); NEUTROPHILS ABSOLUTE AUTO 12.87 K/mm3 (1.96-9.15); NEUTROPHILS PERCENT AUTO 86 % (41-73); NRBC ABSOLUTE 0.03 K/mm3 (0.00-0.02); NRBC Auto 0.2 /100 WBC (0.0-0.2); Platelet Count 245 K/mm3 (150-400); RDW Coefficient Variation 12.8 % (11.7-14.2); RDW Standard Deviation 47.6 fL (35.1-46.3); Red Blood Cell Count 3.88 M/mm3 (4.30-5.90); White Blood Cell Count 14.94 K/mm3 (4.00-11.30)
[2019-01-24 05:03] LABS: Mean Corpuscular Volume 101 fL (80-100)
[2019-01-24 05:21] LABS: Albumin, Blood 3.7 g/dL (3.4-5.0); Anion Gap 6 mmol/L (6-16); Blood Urea Nitrogen 32 mg/dL (8-24); Bun/Creatinine Ratio 26.9 (12.0-20.0); CO2, Blood 30 mmol/L (21-32); Calcium, Blood 9.1 mg/dL (8.5-10.1); Chloride, Blood 102 mmol/L (98-108); Creatinine, Blood 1.19 mg/dL (0.60-1.20); Glomerular Filtration Rate >60 (60-); Glucose, Blood 139 mg/dL (70-99); Phosphorus, Blood 3.9 mg/dL (2.5-4.9); Potassium, Blood 4.7 mmol/L (3.5-5.5); Sodium, Blood 138 mmol/L (136-145)
--- NOTE | 2019-01-24 18:39 | NUR ---
NO ACUTE CHANGES THIS SHIFT. HAS NOT SLEPT THIS SHIFT AND REPORT GIVEN THAT HE DID NOT SLEEP LAST SHIFT. PATIENT COOPERATIVE AND FRIENDLY WITH STAFF.
[2019-01-25 05:06] LABS: BASOPHILS ABSOLUTE AUTO 0.04 K/mm3 (0.00-0.23); BASOPHILS PERCENT AUTO 0 % (0-2); EOSINOPHILS ABSOLUTE AUTO 0.02 K/mm3 (0.00-0.68); EOSINOPHILS PERCENT AUTO 0 % (0-6); IMMATURE GRAN ABSOLUTE AUTO 0.27 K/mm3 (0.00-0.10); IMMATURE GRAN PERCENT AUTO 2 % (0-1); LYMPHOCYTES ABSOLUTE AUTO 3.27 K/mm3 (0.84-5.20); LYMPHOCYTES PERCENT AUTO 21 % (21-46); MONOCYTES ABSOLUTE AUTO 1.16 K/mm3 (0.16-1.47); MONOCYTES PERCENT AUTO 8 % (4-13); Mean Corpuscular HGB 34.7 pg (26.0-34.0); Mean Corpuscular HGB Conc 33.3 g/dL (31.5-36.5); NEUTROPHILS ABSOLUTE AUTO 10.55 K/mm3 (1.96-9.15); NEUTROPHILS PERCENT AUTO 69 % (41-73); NRBC ABSOLUTE 0.02 K/mm3 (0.00-0.02); NRBC Auto 0.1 /100 WBC (0.0-0.2); Platelet Count 213 K/mm3 (150-400); RDW Coefficient Variation 13.1 % (11.7-14.2); RDW Standard Deviation 50.5 fL (35.1-46.3); Red Blood Cell Count 3.75 M/mm3 (4.30-5.90); White Blood Cell Count 15.31 K/mm3 (4.00-11.30)
[2019-01-25 05:14] LABS: Mean Corpuscular Volume 104 fL (80-100)
[2019-01-25 05:34] LABS: Albumin, Blood 3.3 g/dL (3.4-5.0); Anion Gap 7 mmol/L (6-16); Blood Urea Nitrogen 30 mg/dL (8-24); CO2, Blood 30 mmol/L (21-32); Calcium, Blood 8.8 mg/dL (8.5-10.1); Chloride, Blood 101 mmol/L (98-108); Glomerular Filtration Rate >60 (60-); Glucose, Blood 106 mg/dL (70-99); Phosphorus, Blood 4.3 mg/dL (2.5-4.9); Potassium, Blood 4.3 mmol/L (3.5-5.5); Sodium, Blood 138 mmol/L (136-145)
--- NOTE | 2019-01-25 06:24 | NUR ---
SHIFT SUMMARY NO ACUTE EVENTS OVERNIGHT. PATIENT SLEPT FOR APPROX AN HOUR THEN WAS AWAKE REST OF SHIFT. PATIENT OVERHEARD CALLING MULTIPLE PEOPLE THROUGHOUT THE NIGHT. AAOX3.
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
--- NOTE | 2019-01-25 18:13 | NUR ---
HE HAS TROUBLE REMEMBERING EARLIER TODAY. HE SAYS THINGS THAT SEEM FAR FETCHED FROM THE CURRENT CONVERSATION. I HAVE NOT SEEN ANY HALLUCINATIONS. RESPONSE TO IV LASIX SEEMS MODERATE. WILL ENCOURAGE A DAILY WGT EARLY IN THE MORNING.
[2019-01-26 05:13] LABS: BASOPHILS ABSOLUTE AUTO 0.03 K/mm3 (0.00-0.23); BASOPHILS PERCENT AUTO 0 % (0-2); EOSINOPHILS ABSOLUTE AUTO 0.03 K/mm3 (0.00-0.68); EOSINOPHILS PERCENT AUTO 0 % (0-6); Hematocrit 40.1 % (37.0-53.0); Hemoglobin 13.3 g/dL (13.5-17.5); IMMATURE GRAN ABSOLUTE AUTO 0.22 K/mm3 (0.00-0.10); IMMATURE GRAN PERCENT AUTO 1 % (0-1); LYMPHOCYTES ABSOLUTE AUTO 2.93 K/mm3 (0.84-5.20); LYMPHOCYTES PERCENT AUTO 17 % (21-46); MONOCYTES ABSOLUTE AUTO 1.25 K/mm3 (0.16-1.47); MONOCYTES PERCENT AUTO 7 % (4-13); Mean Corpuscular HGB 34.4 pg (26.0-34.0); Mean Corpuscular HGB Conc 33.2 g/dL (31.5-36.5); Mean Corpuscular Volume 104 fL (80-100); Mean Platelet Volume 10.2 fL (9.1-12.4); NEUTROPHILS ABSOLUTE AUTO 12.74 K/mm3 (1.96-9.15); NEUTROPHILS PERCENT AUTO 74 % (41-73); Platelet Count 228 K/mm3 (150-400); RDW Coefficient Variation 13.1 % (11.7-14.2); RDW Standard Deviation 49.5 fL (35.1-46.3); Red Blood Cell Count 3.87 M/mm3 (4.30-5.90)
[2019-01-26 05:35] LABS: Albumin, Blood 3.4 g/dL (3.4-5.0); Anion Gap 6 mmol/L (6-16); Blood Urea Nitrogen 29 mg/dL (8-24); Bun/Creatinine Ratio 24.4 (12.0-20.0); CO2, Blood 30 mmol/L (21-32); Calcium, Blood 8.7 mg/dL (8.5-10.1); Chloride, Blood 100 mmol/L (98-108); Creatinine, Blood 1.19 mg/dL (0.60-1.20); Glomerular Filtration Rate >60 (60-); Glucose, Blood 108 mg/dL (70-99); Phosphorus, Blood 3.6 mg/dL (2.5-4.9); Potassium, Blood 4.4 mmol/L (3.5-5.5); Sodium, Blood 136 mmol/L (136-145)
--- NOTE | 2019-01-26 05:50 | NUR ---
SHIFT SUMMARY NO ACUTE CHANGES OVERNIGHT. PATIENT SLEPT VERY MINIMAL AMOUNT OF TIME OVERNIGHT. PATIENT OVERHEARD MAKING MULTIPLE PHONECALLS. NO INSTANCE OF HALLUCINATIONS REPORTED OR DESCRIBED.
--- NOTE | 2019-01-26 14:14 | NUR ---
HE WAS AWAKE FOR DOCTOR ROUNDS TODAY. HE C/O PAIN IN SHOULDERS, BACK, KNEES AND CRAMPS IN ABD AND LEGS. TRAMADOL GIVEN. HE SAYS IT IS BETTER THAN NOTHING. HE HAS NOT NAPPED MUCH SO FAR TODAY YESTERDAY. WGT IS DOWN FROM ADMISSION. WBC'S IS UP.
--- NOTE | 2019-01-26 17:16 | NUR ---
HIS WBC'S ARE ELEVATED BUT NO FEVER AND BLOOD CULTURES REMAIN NEGATIVE. NO CHANGE IN CONDITION TODAY. FAIR DIURESIS. HE RECEIVED TRAMADOL X1 WITH SOME EFFECT. VSS. LASIX DOSE DECREASED. PREDNISONE DOSE DECREASED FOR TOMORROW AM.
[2019-01-27 05:08] LABS: BASOPHILS ABSOLUTE AUTO 0.02 K/mm3 (0.00-0.23); BASOPHILS PERCENT AUTO 0 % (0-2); EOSINOPHILS ABSOLUTE AUTO 0.03 K/mm3 (0.00-0.68); EOSINOPHILS PERCENT AUTO 0 % (0-6); Hematocrit 40.6 % (37.0-53.0); Hemoglobin 13.5 g/dL (13.5-17.5); IMMATURE GRAN ABSOLUTE AUTO 0.25 K/mm3 (0.00-0.10); IMMATURE GRAN PERCENT AUTO 2 % (0-1); LYMPHOCYTES ABSOLUTE AUTO 3.69 K/mm3 (0.84-5.20); LYMPHOCYTES PERCENT AUTO 23 % (21-46); MONOCYTES ABSOLUTE AUTO 1.36 K/mm3 (0.16-1.47); MONOCYTES PERCENT AUTO 8 % (4-13); Mean Corpuscular HGB 33.3 pg (26.0-34.0); Mean Corpuscular HGB Conc 33.3 g/dL (31.5-36.5); Mean Corpuscular Volume 100 fL (80-100); NEUTROPHILS ABSOLUTE AUTO 11.08 K/mm3 (1.96-9.15); NEUTROPHILS PERCENT AUTO 67 % (41-73); Platelet Count 227 K/mm3 (150-400); RDW Coefficient Variation 12.8 % (11.7-14.2); RDW Standard Deviation 47.5 fL (35.1-46.3); Red Blood Cell Count 4.06 M/mm3 (4.30-5.90); White Blood Cell Count 16.43 K/mm3 (4.00-11.30)
[2019-01-27 05:27] LABS: Albumin, Blood 3.7 g/dL (3.4-5.0); Anion Gap 6 mmol/L (6-16); Blood Urea Nitrogen 30 mg/dL (8-24); Bun/Creatinine Ratio 25.6 (12.0-20.0); CO2, Blood 30 mmol/L (21-32); Calcium, Blood 8.9 mg/dL (8.5-10.1); Chloride, Blood 96 mmol/L (98-108); Creatinine, Blood 1.17 mg/dL (0.60-1.20); Glomerular Filtration Rate >60 (60-); Glucose, Blood 108 mg/dL (70-99); Phosphorus, Blood 4.7 mg/dL (2.5-4.9); Potassium, Blood 4.7 mmol/L (3.5-5.5); Sodium, Blood 132 mmol/L (136-145)
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
--- NOTE | 2019-01-27 11:30 | NUR ---
UPPER ABD CRAMPING PT COMPLAINING OF UPPER ABD CRAMPING INCREASING. PT STATES HIS PAIN IS UNBARABLE AT THIS TIME. PT GAURDING HIS ABD. DR. KIRBY CALLED & NOTIFIED OF EVENT. PT STATES HE HAS NEVER HAS PAIN LIKE THIS BEFORE. PT STATES HE HAD A NORMAL BM THIS AM. DR. KIRBY STATED SHE WILL ORDER SOMETHING & COME SEE THE PT. WILL CONTINUE TO MONITOR.
--- NOTE | 2019-01-27 17:07 | NUR ---
SHIFT SUMMARY PT HAS NOT COMPLAINED OF ABD CRAMPING SINCE MEDICATED EARLIER THIS SHIFT. PT EDUCATED TO URINATE IN URINAL FOR ACCURATE I&OS. NO OTHER CHANGES IN ASSESSMENT AT THIS TIME. VSS. WILL CONTINUE TO MONITOR UNTIL TURNOVER IS COMPLETE.
[2019-01-28 05:08] LABS: BASOPHILS ABSOLUTE AUTO 0.02 K/mm3 (0.00-0.23); BASOPHILS PERCENT AUTO 0 % (0-2); EOSINOPHILS ABSOLUTE AUTO 0.06 K/mm3 (0.00-0.68); EOSINOPHILS PERCENT AUTO 0 % (0-6); Hematocrit 40.6 % (37.0-53.0); Hemoglobin 13.7 g/dL (13.5-17.5); IMMATURE GRAN PERCENT AUTO 1 % (0-1); LYMPHOCYTES PERCENT AUTO 25 % (21-46); MONOCYTES ABSOLUTE AUTO 1.25 K/mm3 (0.16-1.47); MONOCYTES PERCENT AUTO 9 % (4-13); Mean Corpuscular HGB 34.6 pg (26.0-34.0); Mean Corpuscular HGB Conc 33.7 g/dL (31.5-36.5); Mean Platelet Volume 9.8 fL (9.1-12.4); NEUTROPHILS ABSOLUTE AUTO 8.98 K/mm3 (1.96-9.15); NEUTROPHILS PERCENT AUTO 64 % (41-73); Platelet Count 219 K/mm3 (150-400); RDW Coefficient Variation 12.7 % (11.7-14.2); RDW Standard Deviation 48.3 fL (35.1-46.3); Red Blood Cell Count 3.96 M/mm3 (4.30-5.90); White Blood Cell Count 14.01 K/mm3 (4.00-11.30)
[2019-01-28 05:10] LABS: Mean Corpuscular Volume 103 fL (80-100)
[2019-01-28 05:25] LABS: Albumin, Blood 3.7 g/dL (3.4-5.0); Anion Gap 5 mmol/L (6-16); Blood Urea Nitrogen 25 mg/dL (8-24); Bun/Creatinine Ratio 24.8 (12.0-20.0); CO2, Blood 30 mmol/L (21-32); Calcium, Blood 8.9 mg/dL (8.5-10.1); Chloride, Blood 101 mmol/L (98-108); Creatinine, Blood 1.01 mg/dL (0.60-1.20); Glomerular Filtration Rate >60 (60-); Glucose, Blood 113 mg/dL (70-99); Phosphorus, Blood 3.7 mg/dL (2.5-4.9); Potassium, Blood 4.2 mmol/L (3.5-5.5); Sodium, Blood 136 mmol/L (136-145)
--- NOTE | 2019-01-28 13:50 | NUR ---
PT REQUESTED TO KEEP CURRENT IV. PT REQUESTED TO KEEP CURRENT IV IN L AC. PT EDUCATED ON ROUTINE IV CHNAGES & CHANGING FS IVS. PT ASKED TO LEAVE IT INTAKE BECAUSE HE IS "GOING HOME TOMORROW".
--- NOTE | 2019-01-28 16:05 | NUR ---
PT ALLOWED FOR IV ROTATION.
--- NOTE | 2019-01-28 18:15 | NUR ---
SHIFT SUMMARY NO CHANGES IN ASSESSMENT AT THIS TIME. VSS. PT MEDICATED FOR LOWER BACK PAIN ONCE THIS SHIFT. HEAT PAD GIVEN TO PT TO ASSISTWITH BACK PAIN. WILL CONTINUE TO MONITOR UNTIL TURNOVER IS COMPLETE.
--- NOTE | 2019-01-28 21:07 | NUR ---
DR sudhir COSTELLO called to request COPD education consult per RT recommendation. PT has been smoker but no tobacco x 10 days per his report. Disabled , has adult Son and who smoke and per his report drink too much. PT discussing poor diet choices, encouraged low fat low sodium diet and encouraged smoking cessation.
[2019-01-29 05:14] LABS: BASOPHILS ABSOLUTE AUTO 0.02 K/mm3 (0.00-0.23); BASOPHILS PERCENT AUTO 0 % (0-2); EOSINOPHILS PERCENT AUTO 1 % (0-6); Hematocrit 38.5 % (37.0-53.0); Hemoglobin 12.8 g/dL (13.5-17.5); IMMATURE GRAN PERCENT AUTO 1 % (0-1); LYMPHOCYTES ABSOLUTE AUTO 4.21 K/mm3 (0.84-5.20); LYMPHOCYTES PERCENT AUTO 31 % (21-46); MONOCYTES ABSOLUTE AUTO 1.14 K/mm3 (0.16-1.47); MONOCYTES PERCENT AUTO 8 % (4-13); Mean Corpuscular HGB 34.3 pg (26.0-34.0); Mean Corpuscular HGB Conc 33.2 g/dL (31.5-36.5); Mean Corpuscular Volume 103 fL (80-100); Mean Platelet Volume 10.4 fL (9.1-12.4); NEUTROPHILS ABSOLUTE AUTO 8.14 K/mm3 (1.96-9.15); NEUTROPHILS PERCENT AUTO 59 % (41-73); Platelet Count 203 K/mm3 (150-400); RDW Coefficient Variation 12.7 % (11.7-14.2); RDW Standard Deviation 48.1 fL (35.1-46.3); Red Blood Cell Count 3.73 M/mm3 (4.30-5.90); White Blood Cell Count 13.81 K/mm3 (4.00-11.30)
[2019-01-29 05:51] LABS: Albumin, Blood 3.5 g/dL (3.4-5.0); Anion Gap 6 mmol/L (6-16); Blood Urea Nitrogen 24 mg/dL (8-24); Bun/Creatinine Ratio 22.4 (12.0-20.0); CO2, Blood 30 mmol/L (21-32); Calcium, Blood 8.8 mg/dL (8.5-10.1); Chloride, Blood 99 mmol/L (98-108); Creatinine, Blood 1.07 mg/dL (0.60-1.20); Glomerular Filtration Rate >60 (60-); Glucose, Blood 107 mg/dL (70-99); Phosphorus, Blood 3.6 mg/dL (2.5-4.9); Potassium, Blood 4.4 mmol/L (3.5-5.5); Sodium, Blood 135 mmol/L (136-145)
--- NOTE | 2019-01-29 05:51 | NUR ---
PT's planning to dc home with assist [facility] said WBC need to be trending down for discharge and are 13 today versus 14 yesterday. Tolerating diet and activity. On room air. Has been recieving IV lasix for CHF with helpful effect to decrease bilat le edeam. PT denies ETOH abuse and verbalizes desire for smoking cessation. COPD education consult rx and planned for today. PT says he has [facility] disability and pays for care provider three days a week. Discussed need for better dietary choices. Also substance abuse issues in and Son with ETOH and tobacco. Cessation encouraged as well as better dietary choices.
[2019-01-29] MEDS ORDERED: MELATONIN5 M1 PO (11:46)
[2019-01-29] MEDS ORDERED: THERA1 EACH PO (11:46)
--- NOTE | 2019-01-29 14:30 | NUR ---
PT. DISCHARGED HOME WITH HELMET HAT BRIM CUTTER FROM [facility]. TRANSPORT HAD BEEN SET UP SO IT WAS CANCELLED. PT. TO GO TO [place] TO CONTROL VALVE MECHANIC NEW MEDICATIONS. VERBALIZED UBDERSTANDING WELL THE CAREGIVER.
== END 2019-01-29 14:36 | disposition home or self-care (01) | DRG 917 ==
LOC: ER 15:18 → MEDS 18:55 → ENPENDDIS 01-29 11:30 → MEDS 01-29 14:36
PROVIDERS: Family Medicine; Physician Assistant; ADMIT Internal Medicine
DX: T50.901A Poisoning by unspecified drugs, medicaments and biological substances, accidental (unintentional), initial encounter (principal); I50.33 Acute on chronic diastolic (congestive) heart failure; G92 Toxic encephalopathy; J44.1 Chronic obstructive pulmonary disease with (acute) exacerbation; N17.9 Acute kidney failure, unspecified; E87.1 Hypo-osmolality and hyponatremia; I11.0 Hypertensive heart disease with heart failure; F17.210 Nicotine dependence, cigarettes, uncomplicated; F31.9 Bipolar disorder, unspecified
CPT/HCPCS: 36415; 71046; 74018; 74176; 80048; 80053; 80069; 80178; 81003; 82140; 82607; 83605; 83690; 83880; 84425; 84443; 84484; 85025; 87040; 93005; 93010; 94640; 94760; 96365; 99285-25; C9113; J1650; J1940; J1956; J2920; J3010; J3411; J7050; J7512

== ENCOUNTER 2019-03-20 14:36 | Emergency (ER) | payer OTHER, MEDICARE ==
[~2019-03-20] VITALS: Ht 170.2 cm; Wt 113.4 kg
[~2019-03-20 14:36] MED LIST changes: +MELATONIN5 M1 PO; +THERA1 EACH PO
[2019-03-20] MEDS ORDERED: DULO60 PO (15:10)
[2019-03-20] MEDS ORDERED: HYDCHL25 PO (15:11)
[2019-03-20] MEDS ORDERED: HYDR1TAB94 PO (15:12)
[2019-03-20] MEDS ORDERED: LISI20 PO (15:13)
[2019-03-20] MEDS ORDERED: MORP15ER PO (15:14)
[2019-03-20 15:15] LABS: Calcium, Ionized (POC) 1.11 mmol/L (1.10-1.46); Chloride (POC) 97 mmol/L (98-108); Creatinine (POC) 2.9 mg/dL (0.8-1.3); Glucose (ISTAT POC) 103 mg/dL (70-99); Hemoglobin (POC) 12.9 g/dL (13.5-17.5); Potassium (POC) 4.6 mmol/L (3.5-5.5); Sodium (POC) 132 mmol/L (135-148); Total CO2 (POC) 26 mmol/L (21-32)
[2019-03-20] MEDS ORDERED: TIOT18 INH (15:15)
[2019-03-20] MEDS ORDERED: POTA10T PO (15:15)
[2019-03-20 15:37] LABS: BASOPHILS ABSOLUTE AUTO 0.03 K/mm3 (0.00-0.23); BASOPHILS PERCENT AUTO 0 % (0-2); EOSINOPHILS ABSOLUTE AUTO 0.16 K/mm3 (0.00-0.68); EOSINOPHILS PERCENT AUTO 2 % (0-6); Hematocrit 37.8 % (37.0-53.0); Hemoglobin 12.9 g/dL (13.5-17.5); IMMATURE GRAN ABSOLUTE AUTO 0.03 K/mm3 (0.00-0.10); IMMATURE GRAN PERCENT AUTO 0 % (0-1); LYMPHOCYTES ABSOLUTE AUTO 1.93 K/mm3 (0.84-5.20); LYMPHOCYTES PERCENT AUTO 20 % (21-46); MONOCYTES ABSOLUTE AUTO 1.03 K/mm3 (0.16-1.47); MONOCYTES PERCENT AUTO 11 % (4-13); Mean Corpuscular HGB 33.9 pg (26.0-34.0); Mean Corpuscular HGB Conc 34.1 g/dL (31.5-36.5); Mean Corpuscular Volume 99 fL (80-100); Mean Platelet Volume 9.9 fL (9.1-12.4); NEUTROPHILS ABSOLUTE AUTO 6.31 K/mm3 (1.96-9.15); NEUTROPHILS PERCENT AUTO 67 % (41-73); Platelet Count 191 K/mm3 (150-400); RDW Coefficient Variation 12.7 % (11.7-14.2); RDW Standard Deviation 45.8 fL (35.1-46.3); Red Blood Cell Count 3.81 M/mm3 (4.30-5.90); White Blood Cell Count 9.49 K/mm3 (4.00-11.30)
[2019-03-20 15:50] LABS: Albumin, Blood 3.7 g/dL (3.4-5.0); Albumin/Globulin Ratio 1.3 (0.8-1.8); Bilirubin, Total 0.4 mg/dL (0.1-1.0); Bun/Creatinine Ratio 16.7 (12.0-20.0); Calcium, Blood 8.9 mg/dL (8.5-10.1); Creatinine, Blood 2.4 mg/dL (0.60-1.20); Globulin, Blood 2.9 g/dL (2.2-4.0); Potassium, Blood 4.6 mmol/L (3.5-5.5); Total Protein, Blood 6.6 g/dL (6.4-8.2)
[2019-03-20 15:58] LABS: Source, Urine Clean Catch
[2019-03-20 16:13] LABS: Appearance, Urine Clear (Clear); Bilirubin, Urine Neg (Neg); Blood, Urine Neg (Neg); Color, Urine Yellow (P-Yellow); Glucose Qualitative, Urine Neg (Neg); Ketones, Urine Neg (Neg); Leukocyte Esterase, Urine 1+ (Neg); Nitrite, Urine Neg (Neg); Protein, Urine 1+ (Neg); Specific Gravity, Urine 1.015 (1.003-1.022); Urobilinogen, Urine NORM (Normal)
[2019-03-20 16:40] LABS: Bacteria Mod /hpf; Red Blood Cells, Urine Not Seen /hpf (0-2); Squamous Epithelial Cells Rare /hpf (Few); White Blood Cells, Urine Rare /hpf (0-5)
== END 2019-03-20 16:45 | disposition left against medical advice (07) ==
LOC: ER 14:36
PROVIDERS: Emergency Medicine
DX: N17.9 Acute kidney failure, unspecified (principal); I95.9 Hypotension, unspecified; Z88.8 Allergy status to other drugs, medicaments and biological substances; Z79.899 Other long term (current) drug therapy; Z79.52 Long term (current) use of systemic steroids; I50.9 Heart failure, unspecified; J44.9 Chronic obstructive pulmonary disease, unspecified; F17.200 Nicotine dependence, unspecified, uncomplicated
CPT/HCPCS: 71046; 80047; 80053; 81001; 85014; 85025; 87086; 99285-25

== ENCOUNTER 2019-05-17 08:20 | Inpatient (IN) | payer OTHER, MEDICARE ==
[~2019-05-17] VITALS: Ht 172.7 cm; Wt 113.2 kg
[~2019-05-17 08:20] MED LIST changes: +DULO60 PO; +LISI20 PO; +POTA10T PO
[2019-05-17 08:46] LABS: BASOPHILS ABSOLUTE AUTO 0.01 K/mm3 (0.00-0.23); BASOPHILS PERCENT AUTO 0 % (0-2); EOSINOPHILS ABSOLUTE AUTO 0.04 K/mm3 (0.00-0.68); EOSINOPHILS PERCENT AUTO 0 % (0-6); Hematocrit 38.8 % (37.0-53.0); IMMATURE GRAN ABSOLUTE AUTO 0.08 K/mm3 (0.00-0.10); IMMATURE GRAN PERCENT AUTO 1 % (0-1); LYMPHOCYTES ABSOLUTE AUTO 1.67 K/mm3 (0.84-5.20); LYMPHOCYTES PERCENT AUTO 14 % (21-46); MONOCYTES ABSOLUTE AUTO 1.29 K/mm3 (0.16-1.47); MONOCYTES PERCENT AUTO 11 % (4-13); Mean Corpuscular HGB 32.3 pg (26.0-34.0); Mean Corpuscular HGB Conc 33.5 g/dL (31.5-36.5); Mean Corpuscular Volume 96 fL (80-100); Mean Platelet Volume 9.9 fL (9.1-12.4); NEUTROPHILS ABSOLUTE AUTO 8.47 K/mm3 (1.96-9.15); NEUTROPHILS PERCENT AUTO 73 % (41-73); Platelet Count 182 K/mm3 (150-400); RDW Coefficient Variation 13.2 % (11.7-14.2); RDW Standard Deviation 47.4 fL (35.1-46.3); Red Blood Cell Count 4.03 M/mm3 (4.30-5.90); White Blood Cell Count 11.56 K/mm3 (4.00-11.30)
[2019-05-17 08:51] LABS: Base Excess Venous -6.9 mmol/L; Bicarbonate Venous 18.7 mmol/L (24.0-30.0); PCO2 Venous 49.2 mmHg (38-42); PO2 Venous 98.2 mmHg (38-42); pH Blood Venous 7.23 (7.34-7.37)
[2019-05-17 09:00] LABS: Calcium, Ionized (POC) 0.94 mmol/L (1.10-1.46); Chloride (POC) 87 mmol/L (98-108); Creatinine (POC) 8.8 mg/dL (0.8-1.3); Glucose (ISTAT POC) 98 mg/dL (70-99); Hemoglobin (POC) 12.9 g/dL (13.5-17.5); Sodium (POC) 117 mmol/L (135-148); Total CO2 (POC) 23 mmol/L (21-32)
[2019-05-17 09:17] LABS: Troponin I <0.015 ng/mL (0.000-0.040)
[2019-05-17 09:29] LABS: Alanine Aminotransfer (ALT/SGP 48 U/L (12-78); Albumin, Blood 3.5 g/dL (3.4-5.0); Alk Phos 85 U/L (50-136); Anion Gap 14 mmol/L (6-16); Aspartate Aminotrans (AST/SGOT 171 U/L (12-37); Blood Urea Nitrogen 70 mg/dL (8-24); Bun/Creatinine Ratio 8.6 (12.0-20.0); CO2, Blood 22 mmol/L (21-32); Chloride, Blood 86 mmol/L (98-108); Creatinine, Blood 8.14 mg/dL (0.60-1.20); Globulin, Blood 3.5 g/dL (2.2-4.0); Glomerular Filtration Rate 7 (60-); Glucose, Blood 101 mg/dL (70-99); Sodium, Blood 122 mmol/L (136-145)
[2019-05-17 09:32] LABS: Creatine Kinase MB 68.4 ng/mL (0.0-3.6)
[2019-05-17 09:44] LABS: Creatine Kinase MB Index 1.1 (0.0-4.0)
[2019-05-17 09:45] LABS: Source, Urine Catheter
[2019-05-17 09:48] LABS: Appearance, Urine Clear (Clear); Bilirubin, Urine Neg (Neg); Blood, Urine Neg (Neg); Color, Urine Yellow (P-Yellow); Glucose Qualitative, Urine Neg (Neg); Ketones, Urine 1+ (Neg); Leukocyte Esterase, Urine 1+ (Neg); Nitrite, Urine Neg (Neg); Protein, Urine 2+ (Neg); Urobilinogen, Urine NORM (Normal)
[2019-05-17 09:57] LABS: Uric Acid, Blood 10.7 mg/dL (3.5-7.2)
[2019-05-17 09:59] LABS: Bacteria Rare /hpf; Red Blood Cells, Urine 0-2 /hpf (0-2); Squamous Epithelial Cells Not Seen /hpf (Few)
[2019-05-17 10:04] LABS: Phosphorus, Blood 8.5 mg/dL (2.5-4.9)
[2019-05-17 10:12] LABS: Lithium <0.20 mmol/L (0.60-1.20)
--- NOTE | 2019-05-17 11:52 | NUR ---
PT ADMITTED TO ICU 14 AT 1130 FROM ER FOR METABOLIC ENCEPHALOPATHY. PT AROUSES TO NOXIOUS STIMULI, FOLLOWS SOME SIMPLE COMMANDS. SLIGHTLY RESTLESS AND AGITATED WHEN AROUSED. PT ON BIPAP 12/6 WITH FIO2 AT 45%, RESP 18-30, SATS 99%. SCATTERED WHEEZING T/O. DR HOLLEY AND DR RIVAS AT BEDSIDE. PT HYPOTENSIVE; NS BOLUS #4 STARTED.
--- NOTE | 2019-05-17 12:18 | NUR ---
NARCAN GIVEN PER DR HOLLEY. PT DID NOT RESPOND. BP 60/38 MAP 43. SATS 85%; SHALLOW RESP. RT CALLED. FIO2 INCREASED FROM 30% TO 50%. SATS NOW 97%.
[2019-05-17 12:27] LABS: U Amphetamine Screen Not Detected; U Barbituate Screen Not Detected; U Benzodiazapine Screen Not Detected; U Buprenorphine Screen Not Detected; U Cannabinoids Screen Not Detected; U Cocaine Screen Not Detected; U Methadone Screen Not Detected; U Methamphetamine Screen Not Detected; U Opiates Screen DETECTED; U Oxycodone Screen Not Detected; U Phencyclidine Screen Not Detected; U Propoxyphene Screen Not Detected
[2019-05-17 12:41] LABS: Albumin, Blood 2.9 g/dL (3.4-5.0); Bilirubin, Total 0.7 mg/dL (0.1-1.0); Bun/Creatinine Ratio 9.7 (12.0-20.0); Calcium, Blood 7.1 mg/dL (8.5-10.1); Creatinine, Blood 7.14 mg/dL (0.60-1.20); Globulin, Blood 2.8 g/dL (2.2-4.0); Potassium, Blood 5.3 mmol/L (3.5-5.5); Total Protein, Blood 5.7 g/dL (6.4-8.2)
[2019-05-17 14:22] LABS: PCO2 Arterial 46.5 mmHg (35-45); PO2 Arterial 106 mmHg (80-100); pH Blood Arterial 7.21 (7.35-7.45)
--- NOTE | 2019-05-17 14:59 | NUR ---
PT UNRESPONSIVE AND INTUBATED AT 1233 FOR AIRWAY PROTECTION. 7.5F TUBE, 24@LIP. PT WAS INTUBATED WITH 50MG OF PROPOFOL BY DR HOLLEY AT 1231, VERSED 4MG AT 1232, AN ADDITIONAL 50MG PROPOFOL BY DR HOLLEY AT 1132, AND A TOTAL OF 5MG VECORONIUM AT 1235. LEVOPHED WAS STARTED AT 10MCG PERIPHERALLY FOR A SHORT PERIOD OF TIME. PICC LINE PLACED TO CECIL AT 1245. LEVOPHED TITRATED DOWN AND OFF AT 1400. PT IS ON BICARB GTT AT 150CC/HR. DR HOLLEY SPOKE W PT'S , WHO STATED SHE WOULD BE IN NEXT DAY TO VISIT. DR MTZ UPDATED AT 1324 AND AT BEDSIDE TO SEE PT AT 1500. VENT SETTINGS CHANGED TO PC 30/0.78. RATE OF 16, FIO2 OF 80%, PEEP 5. FIO2 TO BE TITRATED DOWN, RATE RIGHT AT 16, SATS 99%. OF PLACED P INTUBATION AND PLACED T LIS; SCANT OUTPUT.
--- NOTE | 2019-05-17 15:56 | NUR ---
PT TENSE AND RIGID DURING TURN; POST TURN PT TV APPROX 200, SATS 82%. RT CALLED TO BEDSIDE. FENT AND ATIVAN GIVEN FOR NON-COMPLIANCE TO VENT. VENT SETTINGS CHANGED TO VC 450/70 BY RT. FIO2 NOW AT 60%, SATS NOW AT 94%, PT CALM ON VENT.
--- NOTE | 2019-05-17 17:07 | NUR ---
SHORTLY AFTER VENT SETTINGS CHANGED, PT BECAME HYPOTENSIVE AGAIN. ALBUMIN INFUSED. LEVOPHED GTT RUNNING AT 5MCG W MAP 60/65..
[2019-05-17 18:07] LABS: Albumin, Blood 3.5 g/dL (3.4-5.0); Anion Gap 11 mmol/L (6-16); Blood Urea Nitrogen 62 mg/dL (8-24); Bun/Creatinine Ratio 12.8 (12.0-20.0); CO2, Blood 22 mmol/L (21-32); Calcium, Blood 7.4 mg/dL (8.5-10.1); Chloride, Blood 95 mmol/L (98-108); Creatinine, Blood 4.83 mg/dL (0.60-1.20); Glomerular Filtration Rate 13 (60-); Glucose, Blood 172 mg/dL (70-99); Sodium, Blood 128 mmol/L (136-145)
[2019-05-17 18:18] LABS: CPK Creatine Kinase 5145 U/L (39-308)
[2019-05-17 18:19] LABS: Phosphorus, Blood 5.5 mg/dL (2.5-4.9)
--- NOTE | 2019-05-17 18:44 | NUR ---
PT GENTLY TURNED TO RIGHT SIDE FOR SCHEDULED TURNS; PT DID NOT TOLERATE WELL. PT HAD INCREASED STACKING AND LOW TITAL VOLUMES IN THE 150 RANGE FOR ABOUT 3MIN. SATS DECREASED OLNY TO 88% WITH 100% FIO2. SMALL AMT OF THICK GARRETT SECRETIONS SX'D FROM ETT. PT RECOVERED WELL AFTER 5MIN. LEVOPHED IS NOW AT 6MCG. PT'S CALLED THIS EVENING; UPDATE GIVEN. LABS GIVEN TO DR MTZ; ORDERS RECIEVED.
[2019-05-17 22:18] LABS: Albumin, Blood 3.4 g/dL (3.4-5.0); Anion Gap 9 mmol/L (6-16); Blood Urea Nitrogen 58 mg/dL (8-24); Bun/Creatinine Ratio 15.7 (12.0-20.0); CO2, Blood 26 mmol/L (21-32); Calcium, Blood 7.7 mg/dL (8.5-10.1); Chloride, Blood 96 mmol/L (98-108); Creatinine, Blood 3.69 mg/dL (0.60-1.20); Glomerular Filtration Rate 18 (60-); Glucose, Blood 218 mg/dL (70-99); Potassium, Blood 4.8 mmol/L (3.5-5.5); Sodium, Blood 131 mmol/L (136-145)
[2019-05-18 04:03] LABS: Hematocrit 35.6 % (37.0-53.0); Hemoglobin 12.3 g/dL (13.5-17.5); Mean Corpuscular HGB 32.6 pg (26.0-34.0); Mean Corpuscular HGB Conc 34.6 g/dL (31.5-36.5); Mean Corpuscular Volume 94 fL (80-100); Mean Platelet Volume 9.6 fL (9.1-12.4); Platelet Count 149 K/mm3 (150-400); RDW Coefficient Variation 12.4 % (11.7-14.2); RDW Standard Deviation 43.5 fL (35.1-46.3); Red Blood Cell Count 3.77 M/mm3 (4.30-5.90); White Blood Cell Count 9.29 K/mm3 (4.00-11.30)
[2019-05-18 04:26] LABS: Albumin, Blood 3.2 g/dL (3.4-5.0); Albumin/Globulin Ratio 1.1 (0.8-1.8); Bilirubin, Total 0.6 mg/dL (0.1-1.0); Bun/Creatinine Ratio 20.4 (12.0-20.0); Calcium, Blood 8.1 mg/dL (8.5-10.1); Creatinine, Blood 2.45 mg/dL (0.60-1.20); Globulin, Blood 2.9 g/dL (2.2-4.0); Magnesium, Blood 2.7 mg/dL (1.6-2.4); Potassium, Blood 4.4 mmol/L (3.5-5.5); Total Protein, Blood 6.1 g/dL (6.4-8.2); Uric Acid, Blood 9.6 mg/dL (3.5-7.2)
--- NOTE | 2019-05-18 04:46 | NUR ---
SHIFT ASSESSMENT: PT INTUBATED/SEDATED. BECOMES AGITATED WITH REPOSITIONING AND ORAL CARE. PT AFEBRILE THIS SHIFT. LUNG SOUNDS COURSE AND DIM AT BASES. VENT SETTINGS: VC 16, TIDAL VOLUME 450, PEEP 5, FIO2 45%. SPO2 >90%. IN SR, SBP 120S, HR 70S. BT X4, NO BM THIS SHIFT. TEMP BROOKS IN PLACE DRAINING LARGE AMOUNTS OF CLEAR YELLOW URINE. CURRENT OUTPUT 4350 MLS THIS SHIFT. BRUISING TO L ARM AND L HIP. PICC TO CECIL, 18G TO RAC, 20G TO R HAND. PICC CURRENTLY INFUSING. RAC AND R HAND PATENT. PROP IS AT 40 MCG/KG. 1/2 NS AT 125, NS AT TKO. SBT PERFORMED. PT ABLE TO FOLLOW SOME COMMANDS HOWEVER DID NOT TOLERATE WELL. PT RE-SEDATED AND APPEARS TO BE MORE RELAXED AT THIS TIME.
--- NOTE | 2019-05-18 07:25 | NUR ---
INITIAL NOTE PT RESTING IN BED, SEDATED WITH PROPOFOL AT 40 PER LT ARM PICC, SL TO RT AC AND RT HAND, PATENT. HEART RATE REGULAR, LUNGS COARSE WITH WHEEZES THROUGHOUT, VENT SETTINGS 16/450/5/50%. BOWEL SOUNDS HYPOACTIVE. PUPILS 2 AND SLUGGISH. NS AT TKO CHANGED TO D5 @ 150/HR. PULSES ARE GOOD. BRUISES TO RT FA, LT FA AND LT SIDE. TEMP BROOKS INTACT WITH YELLOW URINE NOTED, GOOD OUTPUT. PT REPOSITIONED FOR COMFORT, ORAL CARE COMPLETED, AND AM ASSESSMENT COMPLETED. BED REMAINS IN LOW POSITION, RAILS UPX 2, RESTRAINT CHECK DONE, CALL LIGHT IN REACH. WILL CONTINUE TO MONITOR THROUGHOUT THIS SHIFT.
[2019-05-18 11:22] LABS: Anion Gap 7 mmol/L (6-16); Blood Urea Nitrogen 48 mg/dL (8-24); CO2, Blood 28 mmol/L (21-32); Calcium, Blood 8.1 mg/dL (8.5-10.1); Chloride, Blood 98 mmol/L (98-108); Creatinine, Blood 1.78 mg/dL (0.60-1.20); Glomerular Filtration Rate 41 (60-); Glucose, Blood 196 mg/dL (70-99); Phosphorus, Blood 3.4 mg/dL (2.5-4.9); Potassium, Blood 4.5 mmol/L (3.5-5.5); Sodium, Blood 133 mmol/L (136-145)
--- NOTE | 2019-05-18 16:20 | NUR ---
SHIFT SUMMARY PT REMAINS IN BED, RAILS UP X2, CALL LIGHT IN REACH, RESTRAINT CHECKS COMPLETED, VENT AT 16/450/5/50%. PROPOFOL TITRATED FOR EFFECT AND IS CURRENTLY AT 40. D5 REMAINS AT 150/HR PER PICC LINE. HRR, 80-90s. LUNGS COARSE THROUGHOUT WITH GARRETT THICK SPUTUM WHEN SUCTIONED. ORAL CARE PERFORMED. VS REMAIN STABLE THIS SHIFT WITH TEMP HIGH OF 99.6. BOWEL SOUNDS POSITIVE. SL REMAINS TO RIGHT HAND ONLY AND PICC IN LT ARM. SKIN REMAINS INTACT, TURN X2HRS FOR SKIN CARE. BROOKS DRAINING YELLOW URINE WITH SEDIMENT, 1L OUT THIS SHIFT. PT AROUSES AT TIMES AND FOLLOWS COMMANDS, PROP TITRATED FOR EFFECT.
[2019-05-18 16:39] LABS: Albumin, Blood 2.9 g/dL (3.4-5.0); Anion Gap 6 mmol/L (6-16); Blood Urea Nitrogen 47 mg/dL (8-24); Bun/Creatinine Ratio 32.9 (12.0-20.0); CO2, Blood 29 mmol/L (21-32); Calcium, Blood 8.1 mg/dL (8.5-10.1); Chloride, Blood 97 mmol/L (98-108); Creatinine, Blood 1.43 mg/dL (0.60-1.20); Glomerular Filtration Rate 53 (60-); Glucose, Blood 216 mg/dL (70-99); Phosphorus, Blood 2.2 mg/dL (2.5-4.9); Potassium, Blood 4.5 mmol/L (3.5-5.5); Sodium, Blood 132 mmol/L (136-145)
--- NOTE | 2019-05-18 18:56 | NUR ---
1830 BS 92 & NO INSULIN NEEDED.
[2019-05-19 03:18] LABS: BASOPHILS ABSOLUTE AUTO 0.01 K/mm3 (0.00-0.23); BASOPHILS PERCENT AUTO 0 % (0-2); EOSINOPHILS ABSOLUTE AUTO 0.01 K/mm3 (0.00-0.68); EOSINOPHILS PERCENT AUTO 0 % (0-6); Hematocrit 33.9 % (37.0-53.0); Hemoglobin 11.6 g/dL (13.5-17.5); IMMATURE GRAN ABSOLUTE AUTO 0.08 K/mm3 (0.00-0.10); IMMATURE GRAN PERCENT AUTO 1 % (0-1); LYMPHOCYTES ABSOLUTE AUTO 0.73 K/mm3 (0.84-5.20); LYMPHOCYTES PERCENT AUTO 5 % (21-46); MONOCYTES ABSOLUTE AUTO 0.49 K/mm3 (0.16-1.47); MONOCYTES PERCENT AUTO 3 % (4-13); Mean Corpuscular HGB Conc 34.2 g/dL (31.5-36.5); Mean Platelet Volume 9.9 fL (9.1-12.4); NEUTROPHILS ABSOLUTE AUTO 13.54 K/mm3 (1.96-9.15); NEUTROPHILS PERCENT AUTO 91 % (41-73); Platelet Count 164 K/mm3 (150-400); RDW Standard Deviation 45.8 fL (35.1-46.3); Red Blood Cell Count 3.51 M/mm3 (4.30-5.90); White Blood Cell Count 14.86 K/mm3 (4.00-11.30)
[2019-05-19 03:19] LABS: Mean Corpuscular Volume 97 fL (80-100)
[2019-05-19 03:33] LABS: Albumin, Blood 3.1 g/dL (3.4-5.0); Anion Gap 5 mmol/L (6-16); Blood Urea Nitrogen 46 mg/dL (8-24); Bun/Creatinine Ratio 38.3 (12.0-20.0); CO2, Blood 30 mmol/L (21-32); Calcium, Blood 8.4 mg/dL (8.5-10.1); Chloride, Blood 97 mmol/L (98-108); Glomerular Filtration Rate >60 (60-); Glucose, Blood 208 mg/dL (70-99); Magnesium, Blood 2.6 mg/dL (1.6-2.4); Phosphorus, Blood 2.8 mg/dL (2.5-4.9); Potassium, Blood 4.6 mmol/L (3.5-5.5); Sodium, Blood 132 mmol/L (136-145)
--- NOTE | 2019-05-19 06:30 | NUR ---
SHIFT SUMMARY: PT INTUBATED/SEDATED. BECOMES AGITATED WITH REPOSITIONING/ORAL CARE. AFEBRILE THROUGHOUT SHIFT. LUNG SOUNDS WHEEZY AND COURSE THROUGHOUT. SPO2 >90% THROUGHOUT SHIFT. VENT SETTING VC, RATE 16, TIDAL VOLUME 450, FIO2 45%. IN SR, HR IN THE 70S, SBP IN THE 120S. BT X 4 HWEVER NO BM THIS SHIFT. OG IN PLACE WITH CONTINUOUS TF AT GOAL OF 45 ML/HR. BRUISING TO L ARM AND HIP. PICC LINE IN CECIL, 18G TO R HAND-PATENT. PROPOFOL CURRENTLY RUNNING AT 60. SBT PERFORMED TODAY. PT DID WELL HOWEVER BECAME AGITATED AND PROPOFOL TURNED BACK ON AND SETTINGS RETURNED TO A/C ON VENT. PT CURRENTLY RESTING COMFORTABLY.
--- NOTE | 2019-05-19 07:35 | NUR ---
AM ASSESSMENT PT SEDATED, PROPOFOL @ 60, VENT SETTINGS AT 16/450/5/35%. PT DOES AROUSE TO VOICE, ATTEMPTS TO OPEN EYES, MOVES EXTREMITIES. ETT IS 24cm AT THE LIP. HEART RATE REGULAR IN 80s. LUNGS COARSE THROUGHOUT WITH THICK GARRETT SPUTUM WHEN SUCTIONED. BS ACTIVE X4, BROOKS DRAINING CLEAR YELLOW URINE. TUBE FEEDING VHP AT 45cc/HR, RESIDUAL OF 5cc REFED AND LINE FLUSHED BEFORE RESTARTING. SKIN HAS BRUISES TO BILAT FA AND LT SIDE. SL TO RT HAND FLUSHES BUT NO BLOOD RETURN NOTED. PICC TO LT ARM WITH PROPOFOL INFUSING, D5 @ 75CC/HR, AND NS @ KVO, DRESSING REMAINS SATURATED. AM AND ORAL CARES DONE, MEDS GIVEN PER ORDERS. RESTING IN BED, BED IN LOW POSITION, LIGHTS DIMMED, CURTAIN OPENED. AND PT INFORMED OF DAY, TIME, STAFF, AND SITUATION.
--- NOTE | 2019-05-19 18:24 | NUR ---
SHIFT SUMMARY PT REMAINS ON VENT WITH SETTINGS AT AC RATE 16/TV 450/PEEP 5/35%FiO2, PT SEDATION TITRATED AND ON PROPOFOL AT 50 CURRENTLY. PT DOES AROUSE WITH STIMULI. HR, NSR. LUNGS COARSE THROUGHOUT. BS POSITIVE, TF @ 45/HR WITH NO RESIDUAL. BROOKS CONTINUES TO DRAIN CLEAR YELLOW URINE, LASIX GIVEN TODAY. WBCs ELEVATED, GETTING SOLUMEDROL BUT DECREASED TO 40 TODAY. SKIN REMAINS INTACT, MILD EDEMA NOTED. SL TO RT HAND AND PICC TO LT ARM- DRESSING CHANGED TODAY. BED REMAINS IN LOW POSITION, VS WNL, WILL CONTINUE TO MONITOR PT. SPOKE WITH PT X2 TODAY AND GAVE UPDATE ON PT CONDITION.
--- NOTE | 2019-05-19 18:38 | NUR ---
PT RESP STATUS HAS BEEN 18-22 ALL DAY WITH SEDATION.
--- NOTE | 2019-05-19 21:34 | NUR ---
ASSUMED CARE OF PT PT INTUBATED, VENT SETTING AC 16/450/5/30%. SEDATED ON PROPOFOL 35 MCG/KG/MIN. PRECEDEX GTT STARTED AT 0.4 MCG/KG/HR D/T PTS INTOLERANCE OF VENT, INCREASING AGITATION, AND INCREASING PROPFOL DOSING REQUIREMENTS. LUNG SOUNDS COARSE T/O, MODERATED AMOUNT OF THICK GARRETT SECRETIONS SUCTIONED. VHP @ GOAL RATE OF 25 ML/HR WITH NO RESIDUALS AT BEGINNING OF SHIFT. TEMP BROOKS PATENT AND DRAINING. BT HYPERACTIVE IN ALL 4 QUADRANTS. BILATERAL SOFT WRIST RESTRAINTS IN PLACE TO PREVENT ACCIDENTAL SELF-EXTUBATION. SEE FULL SHIFT ASSESSMENT.
[2019-05-20 03:43] LABS: BASOPHILS ABSOLUTE AUTO 0.01 K/mm3 (0.00-0.23); BASOPHILS PERCENT AUTO 0 % (0-2); EOSINOPHILS ABSOLUTE AUTO 0.01 K/mm3 (0.00-0.68); EOSINOPHILS PERCENT AUTO 0 % (0-6); Hematocrit 35.3 % (37.0-53.0); Hemoglobin 12.2 g/dL (13.5-17.5); IMMATURE GRAN PERCENT AUTO 1 % (0-1); LYMPHOCYTES ABSOLUTE AUTO 0.81 K/mm3 (0.84-5.20); LYMPHOCYTES PERCENT AUTO 7 % (21-46); MONOCYTES ABSOLUTE AUTO 0.54 K/mm3 (0.16-1.47); MONOCYTES PERCENT AUTO 5 % (4-13); Mean Corpuscular HGB 32.5 pg (26.0-34.0); Mean Corpuscular HGB Conc 34.6 g/dL (31.5-36.5); Mean Platelet Volume 9.7 fL (9.1-12.4); NEUTROPHILS ABSOLUTE AUTO 10.19 K/mm3 (1.96-9.15); NEUTROPHILS PERCENT AUTO 87 % (41-73); NRBC ABSOLUTE 0.02 K/mm3 (0.00-0.02); NRBC Auto 0.2 /100 WBC (0.0-0.2); Platelet Count 170 K/mm3 (150-400); RDW Standard Deviation 45.1 fL (35.1-46.3); Red Blood Cell Count 3.75 M/mm3 (4.30-5.90); White Blood Cell Count 11.66 K/mm3 (4.00-11.30)
[2019-05-20 03:44] LABS: Mean Corpuscular Volume 94 fL (80-100)
[2019-05-20 03:57] LABS: Albumin, Blood 3.2 g/dL (3.4-5.0); Anion Gap 10 mmol/L (6-16); Blood Urea Nitrogen 52 mg/dL (8-24); Bun/Creatinine Ratio 38.8 (12.0-20.0); CO2, Blood 30 mmol/L (21-32); Calcium, Blood 8.4 mg/dL (8.5-10.1); Chloride, Blood 97 mmol/L (98-108); Creatinine, Blood 1.34 mg/dL (0.60-1.20); Glomerular Filtration Rate 57 (60-); Glucose, Blood 152 mg/dL (70-99); Phosphorus, Blood 2.6 mg/dL (2.5-4.9); Potassium, Blood 4.6 mmol/L (3.5-5.5); Sodium, Blood 137 mmol/L (136-145)
--- NOTE | 2019-05-20 06:09 | NUR ---
SHIFT SUMMARY PROPOFOL PLACED ON STANDBY AT 0415 FOR SEDATION VACATION AND WEAN. PT HAS TOLERATED WELL AND PROPOFOL REMAINS OFF, PT PLACED ON SPONTANEOUS VENT SETTINGS @0445 AND REMAINS ON SPONTANEOUS.. PRECEDEX @ 0.7 MCG/KG/HR. PT FOLLOWING COMMANDS AND NODDING HEAD YES/NO IN RESPONSE TO QUESTIONS. LUNG SOUNDS COARSE T/O, MODERATE AMOUNT OF THICK, GARRETT SPUTUM SUCTIONED THROUGH ETT. VHP @ 25 ML/HR GOAL WITH RESIDUALS OF 0,200,150. TEMP BROOKS PATENT DRAINING, 1200 ML CLEAR NICHOL URINARY OUTPUT THIS SHIFT. WILL REPORT TO DAYSHIFT NURSE.
--- NOTE | 2019-05-20 07:50 | NUR ---
STILL ON PS 7, PEEP 5, 30 , SPONT MODE. PT WAKES EASILY, APPEARS AGITATED WITH SUCTIONING THEN CALMS BACK DOWN. RSBI 19, ALL OTHER VITALS APPEAR STABLE CURRENTLY. CONT SPONT BREATHING TRIAL, WAITING FOR MD.
--- NOTE | 2019-05-20 08:00 | NUR ---
INITIAL ASSESSMENT PATIENT INTUBATED AND ON PRECEDEX AT 0.7 MCG/ KG/ HOUR. PATIENT RESPONDS TO VERBAL STIMULI AND IS FOLLOWING SOME SIMPLE COMMANDS. PATIENT GIVEN PRN FENTANYL SHORT TIME AGO FOR SIGNS OF PAIN. PATIENT SEEMS COMFORTABLE AT THIS TIME. PATIENT HAS TEMP OF 99.3 DEGREES FAHRENHEIT. PATIENT SATTING 90% AND GREATER ON SPONTANEOUS VENT SETTINGS OF 7/0, 30% FIO2. SCANT AMOUNT OF THIN, GARRETT SECRETIONS BEING SUCTIONED FROM ETT. ALL LUNG LOBES CLEAR ON INSPIRATION AND COARSE ON EXPIRATION. PATIENT IN SR, WITH OCCASIONAL PVCS. HR 70S TO 80S. SBP 150S TO 160S. ABDOMEN MODERATELY DISTENDED, SOFT, WITH NORMOACTIVE BS. OG IN PLACE. VHP INFUSING AT GOAL RATE OF 25 MLS/ HOUR WITH 30 ML WATER FLUSH Q4H. RESIDUAL OF 10 MLS OBTAINED AND REINSTILLED. TEMP PROBE BROOKS IN PLACE- DRAINING CLEAR, YELLOW URINE. BRUISES NOTED TO LEFT SIDE AND BACK. PURPURA NOTED ON BILAT FAS. TRACE EXTREMITY EDEMA NOTED. BED LOW, CALL LIGHT IN REACH. WILL CONTINUE TO MONITOR PATIENT FREQUENTLY THROUGHOUT SHIFT.
--- NOTE | 2019-05-20 10:52 | NUR ---
PATIENT EXTUBATED AT 1048, SATTING 90% AND GREATER ON 4 L NC. OG ASPIRATED PRIOR TO EXTUBATION.
--- NOTE | 2019-05-20 11:46 | NUR ---
DR. SALCIDO INFORMED THAT PATIENT'S SBP HAS BEEN BETWEEN 15OS AND 170S THIS AM. INFORMED THAT IT APPEARS PATIENT TAKES BP MEDICATIONS AT HOME BASED ON HIS MED RECONCILIATION, HOWEVER INFORMED THAT MED REC IS INCOMPLETE. DR. SALCIDO STATED TO WAIT UNTIL 1245 TO SEE IF PATIENT CAN ADEQUATELY SWALLOW AFTER EXTUBATION AND IF SO THEN SHE WILL ORDER BP MEDICATIONS.
--- NOTE | 2019-05-20 11:49 | NUR ---
PATIENT ASKED WHAT PHARMACY HE USES SO NURSE CAN COMPLETE MED REC. PATIENT UNABLE TO REMEMBER OR SAY AT THIS TIME. NURSE TRIED TO CALL . DID NOT ANSWER AT THIS TIME.
--- NOTE | 2019-05-20 12:11 | NUR ---
PATIENT RESTING QUIETLY IN BED. PATIENT ABLE TO ANSWER THAT HE IS IN [facility]. PATIENT ORIENTED TO FAMILY AND FOLLOWING SIMPLE COMMANDS. PATIENT HAS TEMP OF 99.0 DEGREES FAHRENHEIT. PATIENT DECREASED TO PRECEDEX OF 0.4 MCG/ KG/ HOUR. PATIENT SATTING 90% AND GREATER ON 4 L NC. PATIENT REMAINS IN SR WITH SBP 150S TO 160S. BLOOD SUGAR OF 221- COVERAGE GIVEN. NO OTHER ACUTE CHANGES TO NOTE ON AT THIS TIME. WILL CONTINUE TO MONITOR.
--- NOTE | 2019-05-20 16:01 | NUR ---
PATIENT WATCHING TV IN BED. PATIENT BECAME SLIGHTLY TEARFUL WHEN TOLD HIS AND SON CALLED TO CHECK UP ON HIM. VITAL SIGNS STABLE. PATIENT AFEBRILE. PATIENT TOLERATING FULL LIQUID DIET WELL THUS FAR. NO OTHER ACUTE CHANGES TO NOTE ON AT THIS TIME. NO COMPLAINTS. WILL CONTINUE TO MONITOR.
--- NOTE | 2019-05-20 18:38 | NUR ---
SHIFT SUMMARY PATIENT EXTUBATED THIS SHIFT. PATIENT ALERT AND ORIENTED TO SELF, FAMILY, TOWN, AND FOLLOWING SOME SIMPLE COMMANDS. PATIENT SHOUTS OUT AT TIMES BUT IS EASILY REDIRECTED AND REORIENTED. PATIENT VERY WEAK. PATIENT ON PRECEDEX DRIP AT 0.4 MCG/ KG/ HOUR. PATIENT HAD TMAX OF 99.3 DEGREES FAHRENHEIT. PATIENT HAS REMAINED SATTING 90% AND GREATER ON 4 L NC. PATIENT REMAINED SB TO SR, HR 50S TO 80S. SBP 130S TO 170S. PATIENT DID NOT HAVE BM THIS SHIFT. COLACE ORDERED. PATIENT TOLERATING FULL LIQUID DIET. TEMP PROBE BROOKS DRAINED ADEQUATE AMOUNT OF YELLOW COLORED URINE. NO CHANGE TO SKIN. PATIENT REPOSIIONED T/O SHIFT. NS TKO. PATIENT'S HOME MEDS, BUSPAR, CYMBALTA, GABAPENTIN AND NORVASC, RESTARTED THIS SHIFT. PATIENT HAS NO COMPLAINTS AT THIS TIME. BED LOW, CALL LIGHT IN REACH. WILL CONTINUE TO MONITOR UNTIL REPORT GIVEN TO ONCOMING ALGEBRA TEACHER NURSE SHORTLY.
--- NOTE | 2019-05-20 20:00 | NUR ---
ASSUMED CARE OF PT, REPORT RCV'D FROM BONNY SELF. PT ALERT TO VERBAL STIMULI, ABLE TO FOLLOW DIRECTIONS AND RECALL HIS NAME/, AND SONS NAME. PT UNABLE TO RECALL PLACE/SITUATION, MONTH OR YEAR. PT'S BEHAVIOR LABILE, OFTEN YELLING OUT AGGRESSIVELY AND THEN BECOMING CHILDLIKE APOLOGIZING AND THANKING NURSING STAFF. PT COOPERATIVE WITH CARE AND ABLE TO RECOGNIZE THAT HE IS DECONDITIONED AND WILL REQUIRE PT BEFORE ATTEMPTING TO AMBULATE. PT CURRENTLY ON PRECEDEX GTT 0.4 MCG/KG/HR TO REDUCE AGITATION. PT ON 4L NC TO MAINTAIN SATS>90%. PT REPORTS ABDOMINAL PAIN WITH PALPATION, PT STATES "MY TUMMY ALWAY HURTS" PT UNABLE TO DESCRIBE PAIN OR LIST FACTORS THAT HELP OR WORSEN PAIN. SEE FULL SHIFT ASSESSMENT
[2019-05-21 03:26] LABS: BASOPHILS ABSOLUTE AUTO 0.02 K/mm3 (0.00-0.23); BASOPHILS PERCENT AUTO 0 % (0-2); EOSINOPHILS PERCENT AUTO 0 % (0-6); Hematocrit 36.7 % (37.0-53.0); Hemoglobin 12.5 g/dL (13.5-17.5); IMMATURE GRAN ABSOLUTE AUTO 0.18 K/mm3 (0.00-0.10); IMMATURE GRAN PERCENT AUTO 2 % (0-1); LYMPHOCYTES ABSOLUTE AUTO 0.99 K/mm3 (0.84-5.20); LYMPHOCYTES PERCENT AUTO 8 % (21-46); MONOCYTES ABSOLUTE AUTO 0.71 K/mm3 (0.16-1.47); MONOCYTES PERCENT AUTO 6 % (4-13); Mean Corpuscular HGB 32.6 pg (26.0-34.0); Mean Corpuscular HGB Conc 34.1 g/dL (31.5-36.5); Mean Corpuscular Volume 96 fL (80-100); Mean Platelet Volume 9.5 fL (9.1-12.4); NEUTROPHILS PERCENT AUTO 84 % (41-73); NRBC ABSOLUTE 0.02 K/mm3 (0.00-0.02); NRBC Auto 0.2 /100 WBC (0.0-0.2); Platelet Count 163 K/mm3 (150-400); RDW Coefficient Variation 13.2 % (11.7-14.2); RDW Standard Deviation 46.3 fL (35.1-46.3); Red Blood Cell Count 3.84 M/mm3 (4.30-5.90)
[2019-05-21 03:45] LABS: Alanine Aminotransfer (ALT/SGP 42 U/L (12-78); Albumin/Globulin Ratio 0.9 (0.8-1.8); Alk Phos 46 U/L (50-136); Anion Gap 7 mmol/L (6-16); Aspartate Aminotrans (AST/SGOT 37 U/L (12-37); Bilirubin, Total 0.7 mg/dL (0.1-1.0); Blood Urea Nitrogen 60 mg/dL (8-24); Bun/Creatinine Ratio 47.6 (12.0-20.0); CO2, Blood 33 mmol/L (21-32); Calcium, Blood 8.4 mg/dL (8.5-10.1); Chloride, Blood 103 mmol/L (98-108); Creatinine, Blood 1.26 mg/dL (0.60-1.20); Globulin, Blood 3.2 g/dL (2.2-4.0); Glomerular Filtration Rate >60 (60-); Glucose, Blood 132 mg/dL (70-99); Magnesium, Blood 2.3 mg/dL (1.6-2.4); Phosphorus, Blood 2.6 mg/dL (2.5-4.9); Potassium, Blood 4.4 mmol/L (3.5-5.5); Sodium, Blood 143 mmol/L (136-145); Total Protein, Blood 6.2 g/dL (6.4-8.2)
[2019-05-21 04:20] LABS: Base Excess Venous 12.1 mmol/L; Bicarbonate Venous 33.8 mmol/L (24.0-30.0); PCO2 Venous 45.2 mmHg (38-42); PO2 Venous 38.1 mmHg (38-42)
--- NOTE | 2019-05-21 06:21 | NUR ---
SHIFT SUMMARY PT STABLE OVERNIGHT. ATTEMPTS TO WEAN PRECEDEX DOWN WERE UNSUCCESSFUL PATIENT EXPERIENCED INCREASING AGITATION AND BEGAN YELLING. PT REMAINS CONFUSED AND BELIEVE HE IS IN "[place]". PT UNABLE TO RECALL DATE/YEAR/PRESIDENT OR WHY HE IS IN THE HOSPITAL. PT OCCASIONALLY APPEARS TO NOT BE ABLE TO FIND THE WORD HE IS SEARCHING FOR AND WILL INSTEAD USE NONSENSE WORDS. FOR EXAMPLE: IN REFERENCE TO HIS NASAL CANNULA/OXYGEN PT CALLED IT A "IVAN CARLYLE". PT NEEDED HIS EYES WIPED AND NEEDED ASSISTANCE BUT ASKED INSTEAD THAT I "TAKE HIS EYE OUT". PT REMAINS ON 4L NC, OCC EXP WHEEZES HEARD, NO COUGHING OR INCREASED SOB THIS SHIFT. SBP IN 160'S, HR OCC ARMANDO 54-70. 1400 ML URINARY OUTPUT FROM BROOKS. PT TOLERATED TAKING PO MEDS WITH WATER WITHOUT COUGHING/CHOKING/GAGGING AND HAS TOLERATED OCCASIONAL SIPS OF WATER REQUESTED. WILL REPORT TO DAYSHIFT NURSE.
--- NOTE | 2019-05-21 08:00 | NUR ---
INITIAL ASSESMENT PT ALERT AND ORIENT TIMES, ABRASIVE AND VERBALLY ABUSIVE. VSS, HYPERTENSIVE WITH AM HTN RX GIVEN. PAPL PULSES T/O WITH GENERALIZED AND BILAT LE 2+ EDEMA 2L NC WITH WEAN TO RA. CLEAR AND DIM BILAT. WILL ADVANCE DIET PER MD ORDER. ABD ROUND SOFT AND NON TENDER BT PRESENT NO BM. PT REFUSED CS AND INSULIN COVERAGE THIS AM DESPITE EDUCATION AND REINFORCEMENT UO DARK NICHOL AND CLEAR VIA BROOKS. WILL CONT TO MONITOR
--- NOTE | 2019-05-21 15:50 | NUR ---
ASSUMED CARE ASSUMED CARE OF PATIENT AT 1550. PATIENT JOKING INAPPROPRIATLY REGARDING THE EMESIS BACK BEING A CONDOM - EDUCATED PATIENT OF INAPPROPRIATE JOKE. PATIENT TRANSFERED TO UNIT BED VIA STAND AND TRANSFER - 1 PERSON ASSISTANCE - ABLE TO BEAR HIS OWN WEIGHT. PATIENT ON 2 LPM NC. VSS OBTAINED - STABLE. PATIENT HR NSR AT 73. WILL CONTINUE TO MONITOR. ORIENTED TO UNIT AND CALL LIGHT W/I REACH.
--- NOTE | 2019-05-21 18:40 | NUR ---
PCU DAYSHIFT SUMMARY PATIENT ARRIVED FROM ICU AT APPROX 1600. PATIENT MEDICATED PER EMAR - AFTER MEDICATION PATIENT WAS ABLE TO REST. PATIENT DENIES ANY PAIN. HR REMAINS NSR IN THE 70'S WITH NO CARDIAC EVENTS NOTED PER HELICOPTER UTILITY AIRCREWMAN ESTRELLA LArlene PATIENT CURRENTLY RESTING IN BED WITH HOB ELEVATED 45 DEGREES, NC IN PLACE WITH 2 LPM OXYGEN FLOWING. CALL LIGHT W/I REACH. BIOX IN PLACE PATIENT SAO2 95%. WILL CONTINUE TO MONITOR AND REPORT TO ONCOMING NOC SHIFT BONNY Dodson
--- NOTE | 2019-05-21 20:00 | NUR ---
CARE ASSUMPTION PT A&O TO SELF AND LOCATION, FOLLOWING INSTRUCTIONS. VSS. MONITOR SHOWS NSR, HR 70's. SPO2 > 92% ON 2L NC. PT REPORTS THROAT "SORE", DENIES OTHER PAIN/DISCOMFORT. BROOKS CATH PATENT AND DRAINING DARK YELLOW URINE. WILL CONTINUE TO MONITOR AND PROVIDE CARE.
--- NOTE | 2019-05-22 01:13 | NUR ---
UPDATE PT DROWSY, SLEEPING SOUNDLY THIS SHIFT W/ PT STATING "I'M STONED" AFTER 2ND DOSE OF ZYPREXA GIVEN PER EMAR. PT SLEEPING WELL THIS SHIFT, WAKING INTERMITTENTLY REQUESTING SNACKS. PT STRUGGLING TO FEED SELF, REQUIRING ASSISTANCE EATING. WILL CONTINUE TO MONITOR AND PROVIDE CARE.
--- NOTE | 2019-05-22 06:23 | NUR ---
SHIFT SUMMARY PT CONTINUES TO BE A&O TO SELF AND LOCATION, FOLLOWING INSTRUCTIONS. PT DENIES RECOLLECTION OF EVENT LEADING TO HOSPITALIZATION. PT PLEASANT W/ NO EPISODES OF AGITATION THIS SHIFT. VSS. MONITOR SHOWS NSR, HR 70's-80's. SPO2 > 92% ON 2L NC. PT C/O SORE THROAT THIS SHIFT, DENIES OTHER PAIN/DISCOMFORT. BROOKS CATH PATENT AND DRAINING DARK YELLOW URINE. WILL CONTINUE TO MONITOR AND PROVIDE CARE.
--- NOTE | 2019-05-22 18:33 | NUR ---
PT WAS ABLE TO GET UP WITH 2 PERSON ASSIST TO RECLINER AND STAY UP FOR THE DAY. PT APPROPRIATELY REPOSITIONED SELF IN CHAIR. AFTER AM MEDS PT REQUIRED A SHORT NAP WHILE IN THE RECLINER AND DECLINED TO GET BACK TO BED. PT DECLINES PAIN AND REMAINS ON RA AFTER TURNING OFF HIS 0XYGENTHIS MORNING. TELEMETRY CONTINUES TO SHOW PT IN NSR.
--- NOTE | 2019-05-23 04:08 | NUR ---
SHIFT SUMMARY PATIENT SLEPT WELL THROUGH NIGHT. VSS. NO C/O PAIN. TRANSFERRED FROM CHAIR TO COMMODE, COMMODE TO BED EARLIER THIS SHIFT WITH X2 MAX ASSSIT. PT. C/O PAIN IN RIGHT LEG MAKING TRANSFER DIFFICULT, RESOLVED COMPLETELY WITH ~ 10 MINUTES REST. VOIDED X2 PER URINAL. ASSESSMENT REMAINS CHARTED. WILL CONTINUE TO MONITOR.
[2019-05-23] MEDS ORDERED: ALBU3IS INH (13:26)
--- NOTE | 2019-05-23 13:27 | NUR ---
MED REC [facility] SENT OVER MEDICATION LIST. MED REC UPDATED PER 'S ORDER.
--- NOTE | 2019-05-23 19:21 | NUR ---
SHIFT SUMMARY PT WAS CHANGED TO MEDICAL STATUS TODAY BY . PT HAS BEEN WORKING WITH PT/OT AND SHOWING INCREASE IN STRENGTH. PT STILL REQUIRES ASSITANCE WITH TRANSFERS. PT REMAINED UP IN CHAIR MOST OF THE DAY. PT WAS IN NSR PER TELEMETRY.
--- NOTE | 2019-05-23 19:30 | NUR ---
OPENING NOTE RECEIVED REPORT FROM RONDA DRAPER AND ASSUMED CARE. PT IS SITTING UP IN CHAIR, DENIES COMPLAINTS AT THIS TIME. NO ACUTE CONCERNS, WILL CONTINUE TO MONITOR. PT IS MEDICAL NO TELE STATUS.
--- NOTE | 2019-05-23 21:45 | NUR ---
BLOOD GLUCOSE PER [facility] MONITOR, GLU: 210. MONITOR IS DOCKED BUT NOT TRANSMITTING TO MEDICAL RECORD. WILL COVER WITH SLIDING SCALE INSULIN PER AUG.
--- NOTE | 2019-05-24 06:30 | NUR ---
SHIFT SUMMARY PT HAS NOT RESTED WELL, AWAKE AND TALKATIVE ON THE PHONE FOR MUCH OF THE SHIFT. C/O PAIN TO KNEE AFTER AMBULATION BUT RELIEVED WITH REST. VSS, SEE ASSESSMENT FOR DETAILS. OVERALL STATUS: UNCHANGED AND CURRENTLY STABLE, MED NO TELE STATUS. PLAN FOR POSSIBLE DISCHARGE TODAY PER PROGRESS NOTE AND PER THE PATIENT'S WISHES. POSSIBLE CONCERN FOR INSUFFICIENT SUPPORT WITH ADL'S IF PT IS DISCHARGED TODAY SINCE GENERALIZED WEAKNESS AND DECONDITIONING STILL PRESENT. WILL PROVIDE BEDSIDE REPORT TO ONCOMING RN.
--- NOTE | 2019-05-24 19:25 | NUR ---
a+o, saline locked, rm air, standby assist with fww, call light in reach, improved during day shift but still not ready to perform adls on own, bsr shared with pt and day shift, denied pain or need for other interventions
--- NOTE | 2019-05-25 05:59 | NUR ---
SHIFT SUMMARY LYING IN HIGH FOWLERS WITH EYES OPEN. HAS RESTED WELL THIS SHIFT. IS ANXIOUS TO GET HOME TODAY. HAS BEEN WRITTING A LIST OF THINGS HE WILL NEED AT HOME. DENIES PAIN, DISCOMFORT, OR FURTHER NEEDS AT THIS TIME. WILL GIVE HAND OFF TO ONCOMING SHIFT USING SBAR.
[2019-05-25] MEDS ORDERED: AMOCLA875 PO (10:08)
[2019-05-25] MEDS ORDERED: GUAI600T33 PO (10:09)
[2019-05-25] MEDS ORDERED: PRED20 PO (10:10)
--- NOTE | 2019-05-25 10:18 | NUR ---
PT PREFERS [employer] WHEN GIVEN OPTIONS. FAXED INFO FAXED TO [employer].
--- NOTE | 2019-05-25 11:43 | NUR ---
DISCHARGE INSTRUCTIONS GONE OVER WITH PT. PT WAS ABLE TO VERABLIZE WHEN/WHERE TO ELECTRICAL LOGGING OPERATOR NEW MEDICATIONS. ALL QUESTIONS ANSWERED. BELONGINGS GATHERED AND SENT HOME WITH PT. PT ESCORTED OUT VIA W/C WITH RN AND FRIEND.
== END 2019-05-25 11:37 | disposition home or self-care (01) | DRG 208 ==
LOC: ER 08:20 → ICUW 10:31 → PCU 10:31 → ICUW 11:25 → PCU 05-21 15:32
PROVIDERS: Emergency Medicine; Internal Medicine; Internal Medicine Critical Care Medicine; Nurse Practitioner Acute Care; ADMIT Internal Medicine
PROC: 0BH17EZ Insertion of Endotracheal Airway into Trachea, Via Natural or Artificial Opening (ICD-10-PCS; principal; 2019-05-17)
PROC: 5A1945Z Respiratory Ventilation, 24-96 Consecutive Hours (ICD-10-PCS; 2019-05-17)
PROC: 3E043XZ Introduction of Vasopressor into Central Vein, Percutaneous Approach (ICD-10-PCS; 2019-05-20)
PROC: 02HV33Z Insertion of Infusion Device into Superior Vena Cava, Percutaneous Approach (ICD-10-PCS; 2019-05-20)
DX: J96.01 Acute respiratory failure with hypoxia (principal); N17.0 Acute kidney failure with tubular necrosis; G92 Toxic encephalopathy; M62.82 Rhabdomyolysis; I50.32 Chronic diastolic (congestive) heart failure; E87.1 Hypo-osmolality and hyponatremia; J44.1 Chronic obstructive pulmonary disease with (acute) exacerbation; F31.9 Bipolar disorder, unspecified; I11.0 Hypertensive heart disease with heart failure; F10.21 Alcohol dependence, in remission; G89.4 Chronic pain syndrome; Z79.891 Long term (current) use of opiate analgesic; F17.210 Nicotine dependence, cigarettes, uncomplicated; E87.5 Hyperkalemia; E83.39 Other disorders of phosphorus metabolism
CPT/HCPCS: 31500; 31720; 36415; 36556; 36569; 36600; 51702; 70450; 71045; 76770; 80047; 80053; 80069; 80178; 81001; 82140; 82550; 82553; 82570; 82803; 82947; 83036; 83605; 83615; 83735; 83880; 83935; 84100; 84300; 84484; 84540; 84550; 85014; 85025; 85027; 87040; 87070; 87086; 87205; 93005; 93010; 94002; 94003; 94640; 94660; 94667; 94760; 96361-59; 96374-59; 96375-59; 97110; 97116; 97163; 97166; 97530; 97535; 99285-25; A9270; C1751; C9113; G0480; J1200; J1644; J1815; J1940; J2060; J2250; J2310; J2543; J2597; J2704; J2930; J3010; J3411; J7030; J7050; J7060; J7070; J7512; P9046

== ENCOUNTER 2021-02-21 20:33 | Emergency (ER) | payer OTHER ==
[~2021-02-21] VITALS: Ht 180.3 cm; Wt 104.3 kg
[~2021-02-21 20:33] MED LIST changes: +AMOCLA875 PO; +GUAI600T33 PO; +PRED20 PO
[2021-02-21 21:23] LABS: BASOPHILS ABSOLUTE AUTO 0.07 K/mm3 (0.00-0.23); BASOPHILS PERCENT AUTO 1 % (0-2); EOSINOPHILS ABSOLUTE AUTO 0.24 K/mm3 (0.00-0.68); EOSINOPHILS PERCENT AUTO 3 % (0-6); Hematocrit 43.8 % (37.0-53.0); Hemoglobin 15.3 g/dL (13.5-17.5); IMMATURE GRAN ABSOLUTE AUTO 0.03 K/mm3 (0.00-0.10); IMMATURE GRAN PERCENT AUTO 0 % (0-1); LYMPHOCYTES ABSOLUTE AUTO 2.53 K/mm3 (0.84-5.20); LYMPHOCYTES PERCENT AUTO 26 % (21-46); MONOCYTES PERCENT AUTO 11 % (4-13); Mean Corpuscular HGB Conc 34.9 g/dL (31.5-36.5); Mean Corpuscular Volume 94 fL (80-100); Mean Platelet Volume 9.5 fL (9.1-12.4); NEUTROPHILS ABSOLUTE AUTO 5.74 K/mm3 (1.96-9.15); NEUTROPHILS PERCENT AUTO 59 % (41-73); Platelet Count 225 K/mm3 (150-400); RDW Coefficient Variation 12.8 % (11.7-14.2); RDW Standard Deviation 44.9 fL (35.1-46.3); Red Blood Cell Count 4.64 M/mm3 (4.30-5.90); White Blood Cell Count 9.71 K/mm3 (4.00-11.30)
[2021-02-21 21:40] LABS: Alanine Aminotransfer (ALT/SGP 30 U/L (12-78); Albumin, Blood 3.8 g/dL (3.4-5.0); Albumin/Globulin Ratio 1.1 (0.8-1.8); Alk Phos 76 U/L (50-136); Anion Gap 6 mmol/L (6-16); Aspartate Aminotrans (AST/SGOT 17 U/L (12-37); Bilirubin, Total 0.5 mg/dL (0.1-1.0); Blood Urea Nitrogen 20 mg/dL (8-24); Bun/Creatinine Ratio 21.9 (12.0-20.0); CO2, Blood 25 mmol/L (21-32); Calcium, Blood 8.4 mg/dL (8.5-10.1); Chloride, Blood 105 mmol/L (98-108); Creatinine, Blood 0.91 mg/dL (0.60-1.20); Globulin, Blood 3.4 g/dL (2.2-4.0); Glomerular Filtration Rate >60 (60-); Glucose, Blood 86 mg/dL (70-99); Potassium, Blood 4.5 mmol/L (3.5-5.5); Sodium, Blood 136 mmol/L (136-145); Total Protein, Blood 7.2 g/dL (6.4-8.2)
[2021-02-22 00:10] LABS: Source, Urine Catheter
[2021-02-22 00:14] LABS: Appearance, Urine Clear (Clear); Bilirubin, Urine Neg (Neg); Blood, Urine Neg (Neg); Color, Urine Yellow (P-Yellow); Glucose Qualitative, Urine Neg (Neg); Ketones, Urine Neg (Neg); Leukocyte Esterase, Urine Neg (Neg); Nitrite, Urine Neg (Neg); Protein, Urine Neg (Neg); Urobilinogen, Urine NORM (Normal)
[2021-02-22] MEDS ORDERED: PRED20 PO (00:22)
== END 2021-02-22 02:15 | disposition left against medical advice (07) ==
LOC: ER 20:33
PROVIDERS: Emergency Medicine; Physician Assistant
DX: J44.1 Chronic obstructive pulmonary disease with (acute) exacerbation (principal); J96.01 Acute respiratory failure with hypoxia; R10.32 Left lower quadrant pain; I11.0 Hypertensive heart disease with heart failure; I50.32 Chronic diastolic (congestive) heart failure; F17.200 Nicotine dependence, unspecified, uncomplicated; Z20.822 Contact with and (suspected) exposure to COVID-19; Z86.19 Personal history of other infectious and parasitic diseases; Z88.8 Allergy status to other drugs, medicaments and biological substances; Z79.899 Other long term (current) drug therapy
CPT/HCPCS: 36415; 71045; 74177; 80053; 81003; 83690; 85025; 94644; 94645; 96374; 96375; 99284-25; J2270; J2405; J2930; Q9967

== ENCOUNTER 2022-01-29 21:32 | Emergency (ER) | payer OTHER ==
[~2022-01-29] VITALS: Ht 172.7 cm; Wt 104.3 kg
[2022-01-29 22:04] LABS: BASOPHILS ABSOLUTE AUTO 0.05 K/mm3 (0.00-0.23); BASOPHILS PERCENT AUTO 1 % (0-2); EOSINOPHILS ABSOLUTE AUTO 0.18 K/mm3 (0.00-0.68); EOSINOPHILS PERCENT AUTO 2 % (0-6); Hematocrit 42.3 % (37.0-53.0); Hemoglobin 14.6 g/dL (13.5-17.5); IMMATURE GRAN ABSOLUTE AUTO 0.03 K/mm3 (0.00-0.10); IMMATURE GRAN PERCENT AUTO 0 % (0-1); LYMPHOCYTES ABSOLUTE AUTO 2.59 K/mm3 (0.84-5.20); LYMPHOCYTES PERCENT AUTO 26 % (21-46); MONOCYTES ABSOLUTE AUTO 1.26 K/mm3 (0.16-1.47); MONOCYTES PERCENT AUTO 13 % (4-13); Mean Corpuscular HGB 32.6 pg (26.0-34.0); Mean Corpuscular HGB Conc 34.5 g/dL (31.5-36.5); Mean Corpuscular Volume 94 fL (80-100); Mean Platelet Volume 9.2 fL (9.1-12.4); NEUTROPHILS ABSOLUTE AUTO 5.74 K/mm3 (1.96-9.15); NEUTROPHILS PERCENT AUTO 58 % (41-73); Platelet Count 198 K/mm3 (150-400); RDW Coefficient Variation 13.5 % (11.7-14.2); RDW Standard Deviation 46.9 fL (35.1-46.3); Red Blood Cell Count 4.48 M/mm3 (4.30-5.90); White Blood Cell Count 9.85 K/mm3 (4.00-11.30)
[2022-01-29 22:35] LABS: Albumin, Blood 3.4 g/dL (3.4-5.0); Albumin/Globulin Ratio 1.1 (0.8-1.8); Bilirubin, Total 0.4 mg/dL (0.1-1.0); Bun/Creatinine Ratio 14.4 (12.0-20.0); Calcium, Blood 8.2 mg/dL (8.5-10.1); Creatinine, Blood 1.04 mg/dL (0.60-1.20); Globulin, Blood 3.1 g/dL (2.2-4.0); Potassium, Blood 4.1 mmol/L (3.5-5.5); Total Protein, Blood 6.5 g/dL (6.4-8.2)
== END 2022-01-30 01:55 | disposition home or self-care (01) ==
LOC: ER 21:32
PROVIDERS: Student in an Organized Health Care Education/Training Program
DX: S00.81XA Abrasion of other part of head, initial encounter (principal); M54.2 Cervicalgia; W01.190A Fall on same level from slipping, tripping and stumbling with subsequent striking against furniture, initial encounter; I11.0 Hypertensive heart disease with heart failure; I50.32 Chronic diastolic (congestive) heart failure; J44.9 Chronic obstructive pulmonary disease, unspecified; F17.200 Nicotine dependence, unspecified, uncomplicated; F31.9 Bipolar disorder, unspecified; F10.20 Alcohol dependence, uncomplicated; Z88.8 Allergy status to other drugs, medicaments and biological substances; Z79.899 Other long term (current) drug therapy
CPT/HCPCS: 70450; 71045; 72125; 80053; 84484; 85025; 93005; 93010; A9270; G0480; J1885; J3010; J7030

== ENCOUNTER 2022-09-30 16:50 | Emergency (ER) | payer OTHER ==
[~2022-09-30] VITALS: Ht 175.3 cm; Wt 90.7 kg
[~2022-09-30 16:50] MED LIST changes: +CEPH500 PO
== END 2022-09-30 20:01 | disposition left against medical advice (07) ==
LOC: ER 16:50
DX: M25.562 Pain in left knee (principal); Z53.21 Procedure and treatment not carried out due to patient leaving prior to being seen by health care provider
CPT/HCPCS: 99281

== ENCOUNTER 2022-10-03 11:58 | Emergency (ER) | payer OTHER ==
[~2022-10-03] VITALS: Ht 175.3 cm; Wt 90.7 kg
[2022-10-03 12:47] LABS: BASOPHILS ABSOLUTE AUTO 0.06 K/mm3 (0.00-0.23); BASOPHILS PERCENT AUTO 1 % (0-2); EOSINOPHILS ABSOLUTE AUTO 0.27 K/mm3 (0.00-0.68); EOSINOPHILS PERCENT AUTO 3 % (0-6); Hematocrit 45.4 % (37.0-53.0); Hemoglobin 15.6 g/dL (13.5-17.5); IMMATURE GRAN ABSOLUTE AUTO 0.02 K/mm3 (0.00-0.10); IMMATURE GRAN PERCENT AUTO 0 % (0-1); LYMPHOCYTES ABSOLUTE AUTO 2.29 K/mm3 (0.84-5.20); LYMPHOCYTES PERCENT AUTO 28 % (21-46); MONOCYTES ABSOLUTE AUTO 0.93 K/mm3 (0.16-1.47); MONOCYTES PERCENT AUTO 11 % (4-13); Mean Corpuscular HGB 32.2 pg (26.0-34.0); Mean Corpuscular HGB Conc 34.4 g/dL (31.5-36.5); Mean Corpuscular Volume 94 fL (80-100); NEUTROPHILS ABSOLUTE AUTO 4.57 K/mm3 (1.96-9.15); NEUTROPHILS PERCENT AUTO 56 % (41-73); Platelet Count 195 K/mm3 (150-400); RDW Coefficient Variation 13.1 % (11.7-14.2); RDW Standard Deviation 45.1 fL (35.1-46.3); Red Blood Cell Count 4.85 M/mm3 (4.30-5.90); White Blood Cell Count 8.14 K/mm3 (4.00-11.30)
[2022-10-03 13:18] LABS: Albumin, Blood 3.8 g/dL (3.4-5.0); Albumin/Globulin Ratio 1.1 (0.8-1.8); Bilirubin, Total 0.5 mg/dL (0.1-1.0); Bun/Creatinine Ratio 18.6 (12.0-20.0); Calcium, Blood 9.4 mg/dL (8.5-10.1); Creatinine, Blood 0.75 mg/dL (0.60-1.20); Globulin, Blood 3.6 g/dL (2.2-4.0); Potassium, Blood 4.5 mmol/L (3.5-5.5); Total Protein, Blood 7.4 g/dL (6.4-8.2)
== END 2022-10-03 16:36 | disposition home or self-care (01) ==
LOC: ER 11:58
PROVIDERS: Physician Assistant
DX: S86.912A Strain of unspecified muscle(s) and tendon(s) at lower leg level, left leg, initial encounter (principal); W22.8XXA Striking against or struck by other objects, initial encounter; Z88.8 Allergy status to other drugs, medicaments and biological substances; Z79.899 Other long term (current) drug therapy; Z79.52 Long term (current) use of systemic steroids; I11.0 Hypertensive heart disease with heart failure; I50.32 Chronic diastolic (congestive) heart failure; J44.9 Chronic obstructive pulmonary disease, unspecified; F17.200 Nicotine dependence, unspecified, uncomplicated; F10.20 Alcohol dependence, uncomplicated
CPT/HCPCS: 36415; 80053; 85025; 93971; 96374; 99284-25; J1885

== ENCOUNTER 2022-12-02 20:41 | Emergency (ER) | payer OTHER ==
[~2022-12-02] VITALS: Ht 172.7 cm; Wt 90.7 kg
[~2022-12-02 20:41] MED LIST changes: +AZIT250 PO
[2022-12-02 20:45] VITALS: BP 104/78
[2022-12-02 23:44] LABS: BASOPHILS ABSOLUTE AUTO 0.04 K/mm3 (0.00-0.23); BASOPHILS PERCENT AUTO 0 % (0-2); EOSINOPHILS ABSOLUTE AUTO 0.22 K/mm3 (0.00-0.68); EOSINOPHILS PERCENT AUTO 2 % (0-6); Hematocrit 43.1 % (37.0-53.0); Hemoglobin 14.5 g/dL (13.5-17.5); IMMATURE GRAN ABSOLUTE AUTO 0.04 K/mm3 (0.00-0.10); IMMATURE GRAN PERCENT AUTO 0 % (0-1); LYMPHOCYTES ABSOLUTE AUTO 1.77 K/mm3 (0.84-5.20); LYMPHOCYTES PERCENT AUTO 18 % (21-46); MONOCYTES PERCENT AUTO 10 % (4-13); Mean Corpuscular HGB 32.3 pg (26.0-34.0); Mean Corpuscular HGB Conc 33.6 g/dL (31.5-36.5); Mean Corpuscular Volume 96 fL (80-100); Mean Platelet Volume 8.7 fL (9.1-12.4); NEUTROPHILS ABSOLUTE AUTO 6.79 K/mm3 (1.96-9.15); NEUTROPHILS PERCENT AUTO 69 % (41-73); Platelet Count 199 K/mm3 (150-400); RDW Standard Deviation 49.1 fL (35.1-46.3); Red Blood Cell Count 4.49 M/mm3 (4.30-5.90); White Blood Cell Count 9.86 K/mm3 (4.00-11.30)
[2022-12-03 00:02] LABS: Albumin, Blood 3.2 g/dL (3.4-5.0); Bilirubin, Total 0.4 mg/dL (0.1-1.0); Bun/Creatinine Ratio 19.7 (12.0-20.0); Creatinine, Blood 0.91 mg/dL (0.60-1.20); Globulin, Blood 3.2 g/dL (2.2-4.0); Potassium, Blood 4.9 mmol/L (3.5-5.5); Total Protein, Blood 6.4 g/dL (6.4-8.2)
[2022-12-03] MEDS ORDERED: Percocet 5-3251 EACH PO (00:39)
[2022-12-03] MEDS ORDERED: CEPH500 PO (00:41)
[2022-12-03] MEDS ORDERED: DOXY100 PO (00:42)
== END 2022-12-03 00:59 | disposition home or self-care (01) ==
LOC: ER 20:41
PROVIDERS: Student in an Organized Health Care Education/Training Program
DX: L03.116 Cellulitis of left lower limb (principal); Z88.8 Allergy status to other drugs, medicaments and biological substances; Z79.899 Other long term (current) drug therapy; Z79.891 Long term (current) use of opiate analgesic; Z79.52 Long term (current) use of systemic steroids; I11.0 Hypertensive heart disease with heart failure; I50.32 Chronic diastolic (congestive) heart failure; J44.9 Chronic obstructive pulmonary disease, unspecified; F17.200 Nicotine dependence, unspecified, uncomplicated
CPT/HCPCS: 80053; 85025; 93971; A9270

== ENCOUNTER 2022-12-08 12:02 | Emergency (ER) | payer OTHER ==
[~2022-12-08] VITALS: Ht 177.8 cm; Wt 97.5 kg
[~2022-12-08 12:02] MED LIST changes: +DOXY100 PO; +Percocet 5-3251 EACH PO
[2022-12-08 14:34] LABS: BASOPHILS ABSOLUTE AUTO 0.06 K/mm3 (0.00-0.23); BASOPHILS PERCENT AUTO 1 % (0-2); EOSINOPHILS PERCENT AUTO 1 % (0-6); Hematocrit 46.1 % (37.0-53.0); Hemoglobin 15.6 g/dL (13.5-17.5); IMMATURE GRAN ABSOLUTE AUTO 0.03 K/mm3 (0.00-0.10); IMMATURE GRAN PERCENT AUTO 0 % (0-1); LYMPHOCYTES ABSOLUTE AUTO 2.32 K/mm3 (0.84-5.20); LYMPHOCYTES PERCENT AUTO 32 % (21-46); MONOCYTES ABSOLUTE AUTO 0.76 K/mm3 (0.16-1.47); MONOCYTES PERCENT AUTO 11 % (4-13); Mean Corpuscular HGB 32.6 pg (26.0-34.0); Mean Corpuscular HGB Conc 33.8 g/dL (31.5-36.5); Mean Corpuscular Volume 96 fL (80-100); Mean Platelet Volume 8.9 fL (9.1-12.4); NEUTROPHILS ABSOLUTE AUTO 3.89 K/mm3 (1.96-9.15); NEUTROPHILS PERCENT AUTO 54 % (41-73); Platelet Count 211 K/mm3 (150-400); RDW Coefficient Variation 14.2 % (11.7-14.2); RDW Standard Deviation 50.2 fL (35.1-46.3); Red Blood Cell Count 4.79 M/mm3 (4.30-5.90); White Blood Cell Count 7.16 K/mm3 (4.00-11.30)
[2022-12-08 14:34] LABS: Source, Urine Clean Catch
[2022-12-08 14:38] LABS: Appearance, Urine Clear (Clear); Bilirubin, Urine Neg (Neg); Blood, Urine Neg (Neg); Color, Urine Amber (P-Yellow); Glucose Qualitative, Urine Neg (Neg); Ketones, Urine Neg (Neg); Leukocyte Esterase, Urine 1+ (Neg); Nitrite, Urine Neg (Neg); Protein, Urine 1+ (Neg); Urobilinogen, Urine 1+ (Normal); pH, Urine 6.5 (5.0-8.0)
[2022-12-08 14:57] LABS: Albumin, Blood 3.6 g/dL (3.4-5.0); Albumin/Globulin Ratio 1.1 (0.8-1.8); Bilirubin, Total 0.8 mg/dL (0.1-1.0); Bun/Creatinine Ratio 12.5 (12.0-20.0); Creatinine, Blood 0.8 mg/dL (0.60-1.20); Globulin, Blood 3.3 g/dL (2.2-4.0); Potassium, Blood 4.7 mmol/L (3.5-5.5); Total Protein, Blood 6.9 g/dL (6.4-8.2)
[2022-12-08 15:02] LABS: Mucus Light (0-Heavy)
[2022-12-08 15:03] LABS: Bacteria Few /hpf; Red Blood Cells, Urine 0-2 /hpf (0-2); Squamous Epithelial Cells Not Seen /hpf (Few)
[2022-12-08 16:10] VITALS: BP 123/79
== END 2022-12-08 16:16 | disposition home or self-care (01) ==
LOC: ER 12:02
PROVIDERS: Emergency Medicine
DX: R41.0 Disorientation, unspecified (principal); B18.2 Chronic viral hepatitis C; I11.0 Hypertensive heart disease with heart failure; I50.32 Chronic diastolic (congestive) heart failure; F17.200 Nicotine dependence, unspecified, uncomplicated; Z88.8 Allergy status to other drugs, medicaments and biological substances; Z79.52 Long term (current) use of systemic steroids; Z79.51 Long term (current) use of inhaled steroids; Z79.899 Other long term (current) drug therapy; J44.9 Chronic obstructive pulmonary disease, unspecified
CPT/HCPCS: 80053; 81001; 82140; 85025; 87086; 99284

== ENCOUNTER 2022-12-11 | Emergency (ER) | payer OTHER ==
[~2022-12-11] VITALS: Ht 177.8 cm; Wt 86.2 kg
[2022-12-11] MEDS ORDERED: OXYCODONE-ACET1 EAC3 PO (00:12)
[2022-12-11] MEDS ORDERED: MONDOXYNE NL100 MG PO (00:13)
[2022-12-11 00:42] LABS: BASOPHILS ABSOLUTE AUTO 0.05 K/mm3 (0.00-0.23); BASOPHILS PERCENT AUTO 1 % (0-2); EOSINOPHILS ABSOLUTE AUTO 0.14 K/mm3 (0.00-0.68); EOSINOPHILS PERCENT AUTO 2 % (0-6); Hematocrit 42.9 % (37.0-53.0); Hemoglobin 14.8 g/dL (13.5-17.5); IMMATURE GRAN ABSOLUTE AUTO 0.02 K/mm3 (0.00-0.10); IMMATURE GRAN PERCENT AUTO 0 % (0-1); LYMPHOCYTES ABSOLUTE AUTO 2.43 K/mm3 (0.84-5.20); LYMPHOCYTES PERCENT AUTO 36 % (21-46); MONOCYTES ABSOLUTE AUTO 0.91 K/mm3 (0.16-1.47); MONOCYTES PERCENT AUTO 14 % (4-13); Mean Corpuscular HGB Conc 34.5 g/dL (31.5-36.5); Mean Corpuscular Volume 96 fL (80-100); Mean Platelet Volume 9.3 fL (9.1-12.4); NEUTROPHILS PERCENT AUTO 47 % (41-73); Platelet Count 208 K/mm3 (150-400); RDW Coefficient Variation 13.9 % (11.7-14.2); RDW Standard Deviation 49.3 fL (35.1-46.3); Red Blood Cell Count 4.48 M/mm3 (4.30-5.90); White Blood Cell Count 6.75 K/mm3 (4.00-11.30)
[2022-12-11 00:54] LABS: Albumin, Blood 3.5 g/dL (3.4-5.0); Albumin/Globulin Ratio 1.1 (0.8-1.8); Bilirubin, Total 0.6 mg/dL (0.1-1.0); Bun/Creatinine Ratio 20.5 (12.0-20.0); Calcium, Blood 9.1 mg/dL (8.5-10.1); Creatinine, Blood 0.78 mg/dL (0.60-1.20); Globulin, Blood 3.1 g/dL (2.2-4.0); Potassium, Blood 4.6 mmol/L (3.5-5.5); Total Protein, Blood 6.6 g/dL (6.4-8.2)
[2022-12-11 02:43] VITALS: BP 131/80
== END 2022-12-11 03:40 | disposition home or self-care (01) ==
LOC: ER
PROVIDERS: Student in an Organized Health Care Education/Training Program
DX: R60.0 Localized edema (principal); Z88.8 Allergy status to other drugs, medicaments and biological substances; Z79.899 Other long term (current) drug therapy; Z79.891 Long term (current) use of opiate analgesic; F17.210 Nicotine dependence, cigarettes, uncomplicated; I11.0 Hypertensive heart disease with heart failure; I50.32 Chronic diastolic (congestive) heart failure; J44.9 Chronic obstructive pulmonary disease, unspecified
CPT/HCPCS: 80053; 85025; 93971; 99284-25; A9270

== ENCOUNTER 2023-03-24 08:07 | Emergency (ER) | payer OTHER ==
[~2023-03-24] VITALS: Ht 177.8 cm; Wt 86.2 kg
[~2023-03-24 08:07] MED LIST changes: +DIVA250EC PO; +MOME220I INH; +MONDOXYNE NL100 MG PO; +Neurontin 300300 MG PO; +OXYC5 PO; +OXYCODONE-ACET1 EAC3 PO
[2023-03-24] MEDS ORDERED: Percocet 5-3251 EACH PO (08:53)
[2023-03-24 09:45] VITALS: BP 137/76
== END 2023-03-24 10:20 | disposition home or self-care (01) ==
LOC: ER 08:07
DX: S61.214A Laceration without foreign body of right ring finger without damage to nail, initial encounter (principal); I11.0 Hypertensive heart disease with heart failure; I50.32 Chronic diastolic (congestive) heart failure; J44.9 Chronic obstructive pulmonary disease, unspecified; B19.20 Unspecified viral hepatitis C without hepatic coma; F17.210 Nicotine dependence, cigarettes, uncomplicated; Z23 Encounter for immunization; Z88.8 Allergy status to other drugs, medicaments and biological substances; Z79.899 Other long term (current) drug therapy; X99.1XXA Assault by knife, initial encounter
CPT/HCPCS: 12001; 90471; 90715; 99283-25

== ENCOUNTER 2023-09-10 11:38 | Emergency (ER) | payer OTHER ==
[~2023-09-10] VITALS: Ht 175.3 cm; Wt 81.7 kg
[2023-09-10 12:26] LABS: BASOPHILS ABSOLUTE AUTO 0.04 K/mm3 (0.00-0.23); BASOPHILS PERCENT AUTO 0 % (0-2); EOSINOPHILS ABSOLUTE AUTO 0.06 K/mm3 (0.00-0.68); EOSINOPHILS PERCENT AUTO 1 % (0-6); Hematocrit 47.9 % (37.0-53.0); Hemoglobin 16.3 g/dL (13.5-17.5); IMMATURE GRAN ABSOLUTE AUTO 0.04 K/mm3 (0.00-0.10); IMMATURE GRAN PERCENT AUTO 0 % (0-1); LYMPHOCYTES ABSOLUTE AUTO 1.49 K/mm3 (0.84-5.20); LYMPHOCYTES PERCENT AUTO 15 % (21-46); MONOCYTES PERCENT AUTO 12 % (4-13); Mean Corpuscular Volume 94 fL (80-100); Mean Platelet Volume 8.9 fL (9.1-12.4); NEUTROPHILS ABSOLUTE AUTO 7.14 K/mm3 (1.96-9.15); NEUTROPHILS PERCENT AUTO 72 % (41-73); Platelet Count 165 K/mm3 (150-400); RDW Coefficient Variation 13.1 % (11.7-14.2); RDW Standard Deviation 45.9 fL (35.1-46.3); Red Blood Cell Count 5.09 M/mm3 (4.30-5.90); White Blood Cell Count 9.97 K/mm3 (4.00-11.30)
[2023-09-10] MEDS ORDERED: Ipratropium/Albuterol SulF 2.5-0.5MG/3 ML Amp INH ONE (12:50)
[2023-09-10] MEDS ORDERED: Morphine Sulfate 4 MG/1 ML Injection IV ONE (12:50)
[2023-09-10 13:00] LABS: Albumin, Blood 3.7 g/dL (3.4-5.0); Albumin/Globulin Ratio 0.9 (0.8-1.8); Bilirubin, Total 1.1 mg/dL (0.1-1.0); Bun/Creatinine Ratio 17.4 (12.0-20.0); Calcium, Blood 9.3 mg/dL (8.5-10.1); Creatinine, Blood 0.8 mg/dL (0.60-1.20); Potassium, Blood 4.4 mmol/L (3.5-5.5); Total Protein, Blood 7.7 g/dL (6.4-8.2)
[2023-09-10] MEDS ORDERED: Albuterol 2.5 MG/3 ML VIAL INH SCH (13:15)
[2023-09-10] MEDS ORDERED: Droperidol 5 mg/2 ml Vial IV ONE (13:55)
[2023-09-10] MEDS ORDERED: MethylPREDNISolone Sod Succ 125 MG Vial IV ONE (14:50)
[2023-09-10] MEDS ORDERED: FentaNYL Citrate 50 MCG/ML 2 ML Injection IV ONE (15:05)
[2023-09-10] MEDS ORDERED: RX Prepack Albuterol 1 PREPACK/6.7 GM INH UD ONE (15:20)
[2023-09-10 15:21] VITALS: BP 135/78
[2023-09-10] MEDS ORDERED: FLUT1DIS5 INH (15:29)
[2023-09-10] MEDS ORDERED: AZIT250 PO (15:36)
[2023-09-10] MEDS ORDERED: Oxygen INH (15:42)
[2023-09-12] MEDS ORDERED: CYCL10 PO (15:08)
[2023-09-12] MEDS ORDERED: MELO7.5 PO (15:08)
== END 2023-09-10 15:46 | disposition home or self-care (01) ==
LOC: ER 11:38
PROVIDERS: Physician Assistant
DX: J44.1 Chronic obstructive pulmonary disease with (acute) exacerbation (principal); R07.89 Other chest pain; I11.0 Hypertensive heart disease with heart failure; I50.32 Chronic diastolic (congestive) heart failure; G93.89 Other specified disorders of brain; F31.9 Bipolar disorder, unspecified; G89.29 Other chronic pain; F17.210 Nicotine dependence, cigarettes, uncomplicated; Z88.8 Allergy status to other drugs, medicaments and biological substances; Z79.899 Other long term (current) drug therapy; Z79.51 Long term (current) use of inhaled steroids
CPT/HCPCS: 70491; 71046; 71260; 80053; 83690; 84484; 85025; 93005; 93010; 94640; 94644; 94664; 96374-59; 96375-59; 99285-25; A9270; J1790; J2270; J2930; J3010; Q9967

== ENCOUNTER 2024-09-17 15:28 | Emergency (ER) | payer OTHER ==
[~2024-09-17] VITALS: Ht 177.8 cm; Wt 90.7 kg
[~2024-09-17 15:28] MED LIST changes: +CYCL10 PO; +FLUT1DIS5 INH; +MELO7.5 PO; +Oxygen INH
[2024-09-17 16:32] LABS: BASOPHILS ABSOLUTE AUTO 0.06 K/mm3 (0.00-0.23); BASOPHILS PERCENT AUTO 1 % (0-2); EOSINOPHILS ABSOLUTE AUTO 0.25 K/mm3 (0.00-0.68); EOSINOPHILS PERCENT AUTO 4 % (0-6); Hematocrit 44.1 % (37.0-53.0); Hemoglobin 15.1 g/dL (13.5-17.5); IMMATURE GRAN ABSOLUTE AUTO 0.02 K/mm3 (0.00-0.10); IMMATURE GRAN PERCENT AUTO 0 % (0-1); LYMPHOCYTES ABSOLUTE AUTO 1.89 K/mm3 (0.84-5.20); LYMPHOCYTES PERCENT AUTO 27 % (21-46); MONOCYTES PERCENT AUTO 10 % (4-13); Mean Corpuscular HGB 32.3 pg (26.0-34.0); Mean Corpuscular HGB Conc 34.2 g/dL (31.5-36.5); Mean Corpuscular Volume 94 fL (80-100); Mean Platelet Volume 8.6 fL (9.1-12.4); NEUTROPHILS PERCENT AUTO 59 % (41-73); Platelet Count 187 K/mm3 (150-400); RDW Coefficient Variation 13.3 % (11.7-14.2); RDW Standard Deviation 46.3 fL (35.1-46.3); Red Blood Cell Count 4.67 M/mm3 (4.30-5.90); White Blood Cell Count 7.12 K/mm3 (4.00-11.30)
[2024-09-17 17:09] LABS: Albumin, Blood 3.4 g/dL (3.4-5.0); Bilirubin, Total 0.9 mg/dL (0.1-1.0); Creatinine, Blood 0.82 mg/dL (0.60-1.20); Globulin, Blood 3.5 g/dL (2.2-4.0); Potassium, Blood 4.7 mmol/L (3.5-5.5); Total Protein, Blood 6.9 g/dL (6.4-8.2)
[2024-09-18] VITALS: BP 132/89
== END 2024-09-17 17:56 | disposition home or self-care (01) ==
LOC: ER 15:28
PROVIDERS: Student in an Organized Health Care Education/Training Program
DX: M16.12 Unilateral primary osteoarthritis, left hip (principal); M17.12 Unilateral primary osteoarthritis, left knee; M19.072 Primary osteoarthritis, left ankle and foot; I11.0 Hypertensive heart disease with heart failure; I50.32 Chronic diastolic (congestive) heart failure; J44.9 Chronic obstructive pulmonary disease, unspecified; F17.210 Nicotine dependence, cigarettes, uncomplicated; F31.9 Bipolar disorder, unspecified; Z79.899 Other long term (current) drug therapy
CPT/HCPCS: 80053; 85025; 93971; 99284-25

== ENCOUNTER 2024-09-23 17:47 | Emergency (ER) | payer OTHER ==
[~2024-09-23] VITALS: Ht 175.3 cm; Wt 95.2 kg
[2024-09-23 17:49] VITALS: BP 129/83
[2024-09-23] MEDS ORDERED: Aspir 8181 MG PO (18:14)
[2024-09-23] MEDS ORDERED: VITAMIN D5000 UNIT PO (18:15)
== END 2024-09-23 19:22 | disposition home or self-care (01) ==
LOC: ER 17:47
DX: M17.12 Unilateral primary osteoarthritis, left knee (principal); I50.32 Chronic diastolic (congestive) heart failure; I10 Essential (primary) hypertension; J44.9 Chronic obstructive pulmonary disease, unspecified; F17.210 Nicotine dependence, cigarettes, uncomplicated; Z79.899 Other long term (current) drug therapy; Z79.82 Long term (current) use of aspirin
CPT/HCPCS: 73562-LT; 99283-25

== ENCOUNTER 2025-01-14 14:07 | Emergency (ER) | payer OTHER ==
[~2025-01-14] VITALS: Ht 175.3 cm; Wt 86.2 kg
[~2025-01-14 14:07] MED LIST changes: +Aspir 8181 MG PO; +VITAMIN D5000 UNIT PO
[2025-01-14] MEDS ORDERED: Ondansetron HCl 2 MG / ML 2ML Vial IV ONE (15:25)
[2025-01-14 15:45] LABS: BASOPHILS ABSOLUTE AUTO 0.04 K/mm3 (0.00-0.23); BASOPHILS PERCENT AUTO 0 % (0-2); EOSINOPHILS ABSOLUTE AUTO 0.01 K/mm3 (0.00-0.68); EOSINOPHILS PERCENT AUTO 0 % (0-6); Hematocrit 52.3 % (37.0-53.0); Hemoglobin 18.0 g/dL (13.5-17.5); IMMATURE GRAN ABSOLUTE AUTO 0.03 K/mm3 (0.00-0.10); IMMATURE GRAN PERCENT AUTO 0 % (0-1); LYMPHOCYTES ABSOLUTE AUTO 1.67 K/mm3 (0.84-5.20); LYMPHOCYTES PERCENT AUTO 16 % (21-46); MONOCYTES ABSOLUTE AUTO 0.77 K/mm3 (0.16-1.47); MONOCYTES PERCENT AUTO 7 % (4-13); Mean Corpuscular HGB Conc 34.4 g/dL (31.5-36.5); Mean Corpuscular Volume 94 fL (80-100); NEUTROPHILS ABSOLUTE AUTO 8.01 K/mm3 (1.96-9.15); NEUTROPHILS PERCENT AUTO 76 % (41-73); NRBC ABSOLUTE 0.00 K/mm3 (0.00-0.02); NRBC Auto 0.0 /100 WBC (0.0-0.2); Platelet Count 223 K/mm3 (150-400); RDW Coefficient Variation 13.0 % (11.7-14.2); RDW Standard Deviation 45.0 fL (35.1-46.3)
[2025-01-14 16:09] LABS: Alanine Aminotransfer (ALT/SGP 27.0 U/L (12-78); Albumin, Blood 3.9 g/dL (3.4-5.0); Albumin/Globulin Ratio 0.9 (0.8-1.8); Anion Gap 6.0 mmol/L (3-11); Aspartate Aminotrans (AST/SGOT 23.0 U/L (12-37); Bilirubin, Total 0.7 mg/dL (0.1-1.0); Blood Urea Nitrogen 16.0 mg/dL (8-24); CO2, Blood 27.0 mmol/L (21-32); Calcium, Blood 9.5 mg/dL (8.5-10.1); Chloride, Blood 105.0 mmol/L (98-108); Creatinine, Blood 0.74 mg/dL (0.60-1.20); Globulin, Blood 4.5 g/dL (2.2-4.0); Glucose, Blood 104.0 mg/dL (70-99); Potassium, Blood 4.3 mmol/L (3.5-5.5); Sodium, Blood 134.0 mmol/L (136-145); Total Protein, Blood 8.4 g/dL (6.4-8.2)
[2025-01-14 18:14] VITALS: BP 134/83
[2025-01-14 19:59] LABS: Source, Urine Voided
[2025-01-14 20:06] LABS: Bilirubin, Urine Neg (Neg); Color, Urine Yellow (P-Yellow); Glucose Qualitative, Urine Neg (Neg); Ketones, Urine 1+ (Neg); Leukocyte Esterase, Urine 1+ (Neg); Protein, Urine 2+ (Neg); Specific Gravity, Urine 1.015 (1.003-1.022); Urobilinogen, Urine NORM (Normal)
[2025-01-14 20:19] LABS: Red Blood Cells, Urine 0-2 /hpf (0-2); White Blood Cells, Urine 0-2 /hpf (0-5)
[2025-01-14] MEDS ORDERED: LOPE2C PO (20:39)
== END 2025-01-14 20:56 | disposition home or self-care (01) ==
LOC: ER 14:07
PROVIDERS: Emergency Medicine
DX: R19.7 Diarrhea, unspecified (principal); I11.0 Hypertensive heart disease with heart failure; I50.32 Chronic diastolic (congestive) heart failure; J44.9 Chronic obstructive pulmonary disease, unspecified; F17.210 Nicotine dependence, cigarettes, uncomplicated; Z79.82 Long term (current) use of aspirin; Z79.1 Long term (current) use of non-steroidal anti-inflammatories (NSAID); Z79.51 Long term (current) use of inhaled steroids; Z79.899 Other long term (current) drug therapy
CPT/HCPCS: 74177; 80053; 81001; 83690; 85025; 87086; 93005; 93010; 96374-59; 99284-25; A9270; J2405; Q9967

== ENCOUNTER 2025-03-21 23:10 | Inpatient (IN) | payer OTHER ==
[~2025-03-21] VITALS: Ht 177.8 cm; Wt 91.0 kg
[~2025-03-21 23:10] MED LIST changes: +LOPE2C PO; +THERA-D2000 UNIT PO; -VITAMIN D5000 UNIT PO
[2025-03-21] MEDS ORDERED: Albuterol 2.5 MG/3 ML VIAL INH SCH (23:20)
[2025-03-21 23:43] LABS: pH Blood Arterial 7.37 (7.35-7.45)
[2025-03-21 23:56] LABS: BASOPHILS ABSOLUTE AUTO 0.05 K/mm3 (0.00-0.23); BASOPHILS PERCENT AUTO 0 % (0-2); EOSINOPHILS ABSOLUTE AUTO 0.11 K/mm3 (0.00-0.68); EOSINOPHILS PERCENT AUTO 1 % (0-6); Hematocrit 43.6 % (37.0-53.0); Hemoglobin 15.2 g/dL (13.5-17.5); IMMATURE GRAN ABSOLUTE AUTO 0.05 K/mm3 (0.00-0.10); IMMATURE GRAN PERCENT AUTO 0 % (0-1); LYMPHOCYTES ABSOLUTE AUTO 2.41 K/mm3 (0.84-5.20); LYMPHOCYTES PERCENT AUTO 21 % (21-46); MONOCYTES ABSOLUTE AUTO 1.26 K/mm3 (0.16-1.47); MONOCYTES PERCENT AUTO 11 % (4-13); Mean Corpuscular HGB Conc 34.9 g/dL (31.5-36.5); Mean Corpuscular Volume 93 fL (80-100); NEUTROPHILS ABSOLUTE AUTO 7.89 K/mm3 (1.96-9.15); NEUTROPHILS PERCENT AUTO 67 % (41-73); NRBC ABSOLUTE 0.00 K/mm3 (0.00-0.02); NRBC Auto 0.0 /100 WBC (0.0-0.2); Platelet Count 173 K/mm3 (150-400); RDW Coefficient Variation 13.0 % (11.7-14.2); RDW Standard Deviation 43.8 fL (35.1-46.3)
[2025-03-22] MEDS ORDERED: Ketorolac Tromethamine 15mg Vial IV ONE (00:15)
[2025-03-22] MEDS ORDERED: FentaNYL Citrate 50 MCG/ML 2 ML Injection IV ONE (00:15)
[2025-03-22 00:22] LABS: Alanine Aminotransfer (ALT/SGP 23.0 U/L (12-78); Albumin, Blood 3.6 g/dL (3.4-5.0); Albumin/Globulin Ratio 1.0 (0.8-1.8); Anion Gap 5.0 mmol/L (3-11); Aspartate Aminotrans (AST/SGOT 24.0 U/L (12-37); Bilirubin, Total 0.8 mg/dL (0.1-1.0); Blood Urea Nitrogen 17.0 mg/dL (8-24); CO2, Blood 31.0 mmol/L (21-32); Calcium, Blood 8.7 mg/dL (8.5-10.1); Chloride, Blood 100.0 mmol/L (98-108); Creatinine, Blood 0.92 mg/dL (0.60-1.20); Globulin, Blood 3.5 g/dL (2.2-4.0); Glucose, Blood 118.0 mg/dL (70-99); Potassium, Blood 4.3 mmol/L (3.5-5.5); Sodium, Blood 132.0 mmol/L (136-145); Total Protein, Blood 7.1 g/dL (6.4-8.2)
[2025-03-22 00:23] LABS: Influenza A, PCR NEGATIVE (NEGATIVE); Influenza B, PCR NEGATIVE (NEGATIVE); Resp Syncytial Virus, PCR NEGATIVE (NEGATIVE); SARS-Cov-2 (COVID-19) PCR, MMC NEGATIVE (NEGATIVE)
[2025-03-22] MEDS ORDERED: FLU VACC TS2025-26(6MOS UP)/PF 45 MCG/0.5 ML SYRINGE IM SCH (01:45)
[2025-03-22] MEDS ORDERED: Albuterol 2.5 MG/3 ML VIAL INH SCH (01:45)
[2025-03-22] MEDS ORDERED: Ipratropium/Albuterol SulF 2.5-0.5MG/3 ML Amp INH SCH (01:45)
[2025-03-22] MEDS ORDERED: CefTRIAXone Sodium 1,000 MG in NS 100 ML IV SCH (01:58)
[2025-03-22 02:59] VITALS: BP 120/74
[2025-03-22] MEDS ORDERED: NS 250 ML IV PRN (03:05)
[2025-03-22] MEDS ORDERED: FentaNYL Citrate 50 MCG/ML 2 ML Injection IV PRN (03:45)
[2025-03-22 03:55] VITALS: BP 119/72
[2025-03-22 05:03] LABS: BASOPHILS ABSOLUTE AUTO 0.01 K/mm3 (0.00-0.23); BASOPHILS PERCENT AUTO 0 % (0-2); EOSINOPHILS ABSOLUTE AUTO 0.00 K/mm3 (0.00-0.68); EOSINOPHILS PERCENT AUTO 0 % (0-6); Hematocrit 40.9 % (37.0-53.0); Hemoglobin 13.8 g/dL (13.5-17.5); IMMATURE GRAN ABSOLUTE AUTO 0.03 K/mm3 (0.00-0.10); IMMATURE GRAN PERCENT AUTO 0 % (0-1); LYMPHOCYTES ABSOLUTE AUTO 0.51 K/mm3 (0.84-5.20); LYMPHOCYTES PERCENT AUTO 6 % (21-46); MONOCYTES ABSOLUTE AUTO 0.13 K/mm3 (0.16-1.47); MONOCYTES PERCENT AUTO 2 % (4-13); Mean Corpuscular HGB Conc 33.7 g/dL (31.5-36.5); Mean Corpuscular Volume 95 fL (80-100); NEUTROPHILS ABSOLUTE AUTO 7.70 K/mm3 (1.96-9.15); NEUTROPHILS PERCENT AUTO 92 % (41-73); NRBC ABSOLUTE 0.00 K/mm3 (0.00-0.02); NRBC Auto 0.0 /100 WBC (0.0-0.2); Platelet Count 165 K/mm3 (150-400); RDW Coefficient Variation 13.0 % (11.7-14.2); RDW Standard Deviation 44.5 fL (35.1-46.3)
[2025-03-22] MEDS ORDERED: Albuterol 2.5 MG/3 ML VIAL INH PRN (05:05)
--- NOTE | 2025-03-22 05:07 | NUR ---
PATIENT ADMITTED DURING SHIFT FOR ACUTE RESP FAILURE. PATIENT ALERT AND ORIENTED X4, ABLE TO MAKE NEEDS KNOWN. PATIENT ON 2 L NC, CONTINUOUS PULSE OX IN PLACE. TELE IN PLACE- RUNNING NSR. PATIENT WAAS GIVEN IV ANTIBIOTICS. FENTANYL GIVEN FOR RUQ ABDOMINAL PAIN. CT ABDOMEN TO BE DONE. SKIN CARE PREFOREMED. PT IS NPO. PATIENT IS A 1 ASSIST UP. CAN USE URINAL. SPUTUM CULTER AND STOOL SAMPLE NEEDED- PT MADE AWARE. ALL PATIENT QUESTIONS AND CONCERNS WERE ADDRESSED. SCD'S ON. BED IN LOW POSITION WITH WHEELS LOCKED. BED ALARM ON, CALL LIGHT WITHIN REACH.
[2025-03-22 05:31] LABS: Alanine Aminotransfer (ALT/SGP 22.0 U/L (12-78); Albumin, Blood 3.2 g/dL (3.4-5.0); Albumin/Globulin Ratio 0.9 (0.8-1.8); Anion Gap 10.0 mmol/L (3-11); Aspartate Aminotrans (AST/SGOT 17.0 U/L (12-37); Bilirubin, Total 0.6 mg/dL (0.1-1.0); Blood Urea Nitrogen 17.0 mg/dL (8-24); CO2, Blood 25.0 mmol/L (21-32); Calcium, Blood 8.7 mg/dL (8.5-10.1); Chloride, Blood 100.0 mmol/L (98-108); Creatinine, Blood 0.86 mg/dL (0.60-1.20); Globulin, Blood 3.4 g/dL (2.2-4.0); Glucose, Blood 210.0 mg/dL (70-99); Potassium, Blood 3.9 mmol/L (3.5-5.5); Sodium, Blood 131.0 mmol/L (136-145); Total Protein, Blood 6.6 g/dL (6.4-8.2)
--- NOTE | 2025-03-22 07:59 | NUR ---
IMAGING CLARIFICATION NOTE: RECEIVED A CALL FROM STALIN SAUCEDO (SOUND EFFECTS PERSON) [facility]IA [facility] AT [address] ABDOMEN/PELVIS WWO CONTRAST. PER SATLIN THEY NORMALLY DO WITH CONTRAST, HE NEEDS CLARIFICATION FROM THE DOCTOR. CALLED DR. RIVAS TO CLARIFY THE ORDER, RECEIVED ORDER FROM DR. RIVAS CT ABDOMEN/PELVIS WITH CONTRAST. CALLED STALIN BACK [facility]IA [facility] AT [phone]. PER STALIN HE WILL CHANGE THE ORDER.
[2025-03-22 08:08] VITALS: BP 132/71
--- NOTE | 2025-03-22 08:46 | NUR ---
OUT OF ROOM NOTE: PATIENT LEFT THE ROOM VIA WC AT 0845 TO IMAGING.
[2025-03-22] MEDS ORDERED: Lactobacil 2-S.Thermo-Bifido 1 1 Cap PO SCH (09:00)
[2025-03-22] MEDS ORDERED: Formoterol/Mometasone MDI 5/200 mcg 13 GM INH SCH (12:45)
[2025-03-22] MEDS ORDERED: Albuterol HFA200 ACT/6.7 GM INH INH PRN (12:45)
[2025-03-22] MEDS ORDERED: Tiotropium Bromide 2.5 MCG/ACT MIST INHAL (10 ACT/4 GM) INH SCH (12:45)
--- NOTE | 2025-03-22 14:32 | NUR ---
AM NOTE: PATIENT REPORTS 7 RUQ ABDOMINAL AND BACK PAIN. OFFERED TYLENOL 650 MG. PATIENT REFUSED, STATED "TYLENOL IT DOES NOT DO ANY SH.., [facility] BETTER PAIN MEDICATION." NOTIFIED DR. RIVAS, RECEIVE ORDER TO GIVE OXYCODONE 5 MG PO EVERY 4 HOURS PRN FOR PAIN.
[2025-03-22 14:52] VITALS: BP 132/69
[2025-03-22] MEDS ORDERED: MORP15ER PO (16:27)
[2025-03-22] MEDS ORDERED: OXYC10TA19 PO (16:29)
[2025-03-22] MEDS ORDERED: NALOXONE HCL4 MG (16:29)
[2025-03-22] MEDS ORDERED: MIRALAX17 GM PO (16:31)
[2025-03-22] MEDS ORDERED: BETASEPT118 M1 SS (16:34)
--- NOTE | 2025-03-22 16:48 | NUR ---
DAYS SHIFT NOTE: PATIENT REPORTS HE TAKES MORPHINE 30 MG AND OXYCODONE 10 MG, PRESCRIBED BY [facility]. NOTIFIED MAIL HANDLER, GERARDO ANGULO. GERARDO CALLED [facility] TO REQUEST PATIENT UPDATED MEDICATION LIST-RECEIVED MED LIST FROM [facility]. PATIENT [facility] UPDATED AND NOTIFIED DR. ROB santos PATIENT CURRENT [facility]REC. RECEIVED ORDER FROM DR. RIVAS TO RESTART PATIENT MORPHINE 30 MG PO EVERY 12 HRS PRN FOR PAIN, OXYCODONE 10 MG PO DAILY PRN; START DULCOLAX SUPPOSITORY PRN FOR CONSTIPATION AND SENNA 17.2 MG TWICE A DAY.
--- NOTE | 2025-03-22 18:45 | NUR ---
SHIFT SUMMARY: PATIENT DECLINE PT TODAY BUT AGREED TO WORK c OT LATE AFTERNOON. PATIENT MEDICATED FOR RUQ PAIN PER EMAR c SLIGHT EFFECT. PATIENT CT ABDOMEN/PELVIS WAS DONE TODAY c RESULT AVAILABLE. PATIENT HAS VISIBLE TREMORS TO BUE'S. PATIENT DENIES CP/PRESSURE, SOB, N/V AND DIZZINESS. PATIENT ON TELE, SR HR IN 70'S BPM. PATIENT LUNGS COARSE/WHEEZY T/O TO AUSCULTATION, ON 1L O2 NC, SATTING 93-97%, ON CONE SEWER. PATIENT RECEIVED BREATHING TX ADMINISTERED BY RT PER ORDER. PATIENT HAS GOOD APPETITE, CONTINENT OF BLADDER, USES URINAL IN BED AND AMBULATED TO BATHROOM c SBA. VITAL SIGNS REVIEWED. PATIENT REFUSED SCD'S. PATIENT A/OX3, FORGETFUL AND INTERMITTENT CONFUSION. BED IN LOWEST POSITION AND ALARM ON FOR SAFETY. CALL LIGHT IN REACH.
[2025-03-22 19:10] VITALS: BP 129/67
[2025-03-22] MEDS ORDERED: Ondansetron HCl 2 MG / ML 2ML Vial IV PRN (21:20)
[2025-03-23 00:14] VITALS: BP 134/77
--- NOTE | 2025-03-23 01:36 | NUR ---
RN NOTIFIED ROMEO MOROCHO OF PATIENT HAVING NAUSEA AND ANXIETY. OBTAINED ORDER FOR 50 MG HYDROXYZINE PO ONCE AN 4 MG ZOFRAN IV Q 4 HR PRN. ORDER WAS READ BACK TO [facility] AND CONFIRMED.
[2025-03-23 05:19] VITALS: BP 115/68
[2025-03-23 06:15] LABS: BASOPHILS ABSOLUTE AUTO 0.03 K/mm3 (0.00-0.23); BASOPHILS PERCENT AUTO 0 % (0-2); EOSINOPHILS ABSOLUTE AUTO 0.00 K/mm3 (0.00-0.68); EOSINOPHILS PERCENT AUTO 0 % (0-6); Hematocrit 43.1 % (37.0-53.0); Hemoglobin 14.6 g/dL (13.5-17.5); IMMATURE GRAN ABSOLUTE AUTO 0.09 K/mm3 (0.00-0.10); IMMATURE GRAN PERCENT AUTO 0 % (0-1); LYMPHOCYTES ABSOLUTE AUTO 0.86 K/mm3 (0.84-5.20); LYMPHOCYTES PERCENT AUTO 4 % (21-46); MONOCYTES ABSOLUTE AUTO 0.53 K/mm3 (0.16-1.47); MONOCYTES PERCENT AUTO 2 % (4-13); Mean Corpuscular HGB Conc 33.9 g/dL (31.5-36.5); Mean Corpuscular Volume 95 fL (80-100); NEUTROPHILS ABSOLUTE AUTO 22.49 K/mm3 (1.96-9.15); NEUTROPHILS PERCENT AUTO 94 % (41-73); NRBC ABSOLUTE 0.00 K/mm3 (0.00-0.02); NRBC Auto 0.0 /100 WBC (0.0-0.2); Platelet Count 189 K/mm3 (150-400); RDW Coefficient Variation 13.4 % (11.7-14.2); RDW Standard Deviation 47.2 fL (35.1-46.3)
[2025-03-23 06:15] LABS: pH Blood Venous 7.32 (7.34-7.37)
[2025-03-23 06:32] LABS: Anion Gap 9.0 mmol/L (3-11); Blood Urea Nitrogen 20.0 mg/dL (8-24); CO2, Blood 27.0 mmol/L (21-32); Calcium, Blood 9.5 mg/dL (8.5-10.1); Chloride, Blood 103.0 mmol/L (98-108); Creatinine, Blood 0.69 mg/dL (0.60-1.20); Glucose, Blood 191.0 mg/dL (70-99); Potassium, Blood 5.0 mmol/L (3.5-5.5); Sodium, Blood 134.0 mmol/L (136-145)
[2025-03-23 08:31] VITALS: BP 166/69
[2025-03-23] MEDS ORDERED: Cholecalciferol 1000 Unit Tablet (=25MCG) PO SCH (09:00)
[2025-03-23 11:53] VITALS: BP 139/91
[2025-03-23 17:29] VITALS: BP 109/78
--- NOTE | 2025-03-23 18:02 | NUR ---
PATIENT REFUSED NICOTINE PATCH, DISCUSSED NEED FOR MORE BOWEL CARE, PATIENT REFUSED ADDITIONAL MESSURES. STATES HE WILL ASK FOR MORE WHEN HE IS READY. IND WITH MEALS AFTER SET UP. ABLE TO ADJUST SELF IN BED AND CALLS WHEN NEEDED. A&O X3-4, ANXIOUS TO GET HOME TO [place]. NEED FOLLOW UP [facility] AFTER DISCHARGE.
[2025-03-23 19:11] VITALS: BP 120/57
[2025-03-24 00:18] VITALS: BP 110/64
[2025-03-24 05:10] VITALS: BP 139/59
--- NOTE | 2025-03-24 06:05 | NUR ---
YARROW GATHERER SUMMARY PT A&OX4, VSS. HAS BEEN SLEEPING ON AND OFF THIS SHIFT. CHEST RISE/RESPIRATIONS NOTED. UP W/ SBA TO RESTROOM. CONTINUES TO ENDORSE RUQ TENDERNESS. SCHEDULED MORPHINE ADMIN W/ MOD EFFECT. REMAINS ON TELE. SR AT 80. NO BOWEL MOVEMENT THIS SHIFT, BUT DID ACCEPT AND TAKE [place] DURING EVENING MED PASS. BED RAILS UP X 2, BED IN LOWEST POSITION, BED WHEELS LOCKED, PERSONAL BELONGINGS AND CALL LIGHT WITHIN REACH FOR SAFETY.
[2025-03-24 06:14] LABS: BASOPHILS ABSOLUTE AUTO 0.02 K/mm3 (0.00-0.23); BASOPHILS PERCENT AUTO 0 % (0-2); EOSINOPHILS ABSOLUTE AUTO 0.00 K/mm3 (0.00-0.68); EOSINOPHILS PERCENT AUTO 0 % (0-6); Hematocrit 39.5 % (37.0-53.0); Hemoglobin 13.4 g/dL (13.5-17.5); IMMATURE GRAN ABSOLUTE AUTO 0.08 K/mm3 (0.00-0.10); IMMATURE GRAN PERCENT AUTO 0 % (0-1); LYMPHOCYTES ABSOLUTE AUTO 0.78 K/mm3 (0.84-5.20); LYMPHOCYTES PERCENT AUTO 4 % (21-46); MONOCYTES ABSOLUTE AUTO 1.06 K/mm3 (0.16-1.47); MONOCYTES PERCENT AUTO 6 % (4-13); Mean Corpuscular HGB Conc 33.9 g/dL (31.5-36.5); Mean Corpuscular Volume 95 fL (80-100); NEUTROPHILS ABSOLUTE AUTO 16.94 K/mm3 (1.96-9.15); NEUTROPHILS PERCENT AUTO 90 % (41-73); NRBC ABSOLUTE 0.00 K/mm3 (0.00-0.02); NRBC Auto 0.0 /100 WBC (0.0-0.2); Platelet Count 200 K/mm3 (150-400); RDW Coefficient Variation 13.4 % (11.7-14.2); RDW Standard Deviation 47.2 fL (35.1-46.3)
[2025-03-24 06:41] LABS: Alanine Aminotransfer (ALT/SGP 22.0 U/L (12-78); Albumin, Blood 2.9 g/dL (3.4-5.0); Albumin/Globulin Ratio 0.9 (0.8-1.8); Anion Gap 5.0 mmol/L (3-11); Aspartate Aminotrans (AST/SGOT 11.0 U/L (12-37); Bilirubin, Total 0.2 mg/dL (0.1-1.0); Blood Urea Nitrogen 29.0 mg/dL (8-24); CO2, Blood 29.0 mmol/L (21-32); Calcium, Blood 9.0 mg/dL (8.5-10.1); Chloride, Blood 105.0 mmol/L (98-108); Creatinine, Blood 0.8 mg/dL (0.60-1.20); Globulin, Blood 3.1 g/dL (2.2-4.0); Glucose, Blood 130.0 mg/dL (70-99); Potassium, Blood 4.7 mmol/L (3.5-5.5); Sodium, Blood 134.0 mmol/L (136-145); Total Protein, Blood 6.0 g/dL (6.4-8.2)
[2025-03-24 07:31] VITALS: BP 125/73
[2025-03-24 11:22] VITALS: BP 152/77
[2025-03-24] MEDS ORDERED: SENN187 PO (11:52)
[2025-03-24] MEDS ORDERED: LACT PO (11:53)
[2025-03-24] MEDS ORDERED: AMOCLA500 PO (11:54)
[2025-03-24] MEDS ORDERED: PRED20 PO (11:56)
[2025-03-24] MEDS ORDERED: DULERA 200 MCG-13 GM (11:59)
--- NOTE | 2025-03-24 12:52 | NUR ---
DISCHARGE PATIENT GIVEN DC INSTRUCTIONS, REVIEWED NEW MEDICATIONS AND FOLLOW UP PLANS. PATIENT FAMILY FRIEND HERE TO GIVE A RIDE. HE WAS TAKEN DOWN TO THE EXIT BY MEDICAL STAFF IN WHEELCHAIR. DENIED [facility] UPON LEAVING.
[2025-03-26 00:09] LABS: HCV QNT BY NAAT (IU/ML) Not Detected; HCV QNT BY NAAT (LOG IU/ML) Not Detected; HCV QNT BY NAAT INTERP Not Detected (Not Detected)
== END 2025-03-24 12:50 | disposition home or self-care (01) | DRG 189 ==
LOC: ER 23:10 → MEDS 23:11 → ENPENDDIS 03-24 11:39 → MEDS 03-24 12:50
PROVIDERS: Emergency Medicine; Internal Medicine; Student in an Organized Health Care Education/Training Program; ADMIT Internal Medicine
PROC: 4A033R1 Measurement of Arterial Saturation, Peripheral, Percutaneous Approach (ICD-10-PCS; principal; 2025-03-21)
PROC: 3E03329 Introduction of Other Anti-infective into Peripheral Vein, Percutaneous Approach (ICD-10-PCS; 2025-03-22)
DX: J96.01 Acute respiratory failure with hypoxia (principal); I50.32 Chronic diastolic (congestive) heart failure; E87.1 Hypo-osmolality and hyponatremia; J44.1 Chronic obstructive pulmonary disease with (acute) exacerbation; F11.20 Opioid dependence, uncomplicated; I11.0 Hypertensive heart disease with heart failure; F31.9 Bipolar disorder, unspecified; F17.210 Nicotine dependence, cigarettes, uncomplicated; R73.9 Hyperglycemia, unspecified; K76.89 Other specified diseases of liver; G89.4 Chronic pain syndrome; R10.11 Right upper quadrant pain; Z86.19 Personal history of other infectious and parasitic diseases; Z87.828 Personal history of other (healed) physical injury and trauma; Z79.51 Long term (current) use of inhaled steroids; Z79.82 Long term (current) use of aspirin; Z79.899 Other long term (current) drug therapy
CPT/HCPCS: 36415; 36600; 71045; 74177; 80048; 80053; 82803; 82947; 83036; 83605; 83880; 84484; 85025; 87522; 87637; 93005; 93010; 94640; 94664; 94760; 94762; 96365; 96367; 96374; 96375; 96376; 97110; 97161; 97165; 97530; 97535; 99285-25; A9270; G0378; J0456; J0696; J1885; J2405; J2919; J3010; J7050; Q9967

== ENCOUNTER 2025-03-26 14:10 | Emergency (ER) | payer OTHER ==
[~2025-03-26] VITALS: Ht 175.3 cm; Wt 79.4 kg
[~2025-03-26 14:10] MED LIST changes: +AMOCLA500 PO; +BETASEPT118 M1 SS; +DULERA 200 MCG-13 GM; +LACT PO; +MIRALAX17 GM PO; +NALOXONE HCL4 MG; +OXYC10TA19 PO; +SENN187 PO
[2025-03-26 14:35] LABS: BASOPHILS ABSOLUTE AUTO 0.02 K/mm3 (0.00-0.23); BASOPHILS PERCENT AUTO 0 % (0-2); EOSINOPHILS ABSOLUTE AUTO 0.09 K/mm3 (0.00-0.68); EOSINOPHILS PERCENT AUTO 1 % (0-6); Hematocrit 44.8 % (37.0-53.0); Hemoglobin 15.4 g/dL (13.5-17.5); IMMATURE GRAN ABSOLUTE AUTO 0.08 K/mm3 (0.00-0.10); IMMATURE GRAN PERCENT AUTO 1 % (0-1); LYMPHOCYTES ABSOLUTE AUTO 2.26 K/mm3 (0.84-5.20); LYMPHOCYTES PERCENT AUTO 24 % (21-46); MONOCYTES ABSOLUTE AUTO 0.89 K/mm3 (0.16-1.47); MONOCYTES PERCENT AUTO 9 % (4-13); Mean Corpuscular HGB Conc 34.4 g/dL (31.5-36.5); Mean Corpuscular Volume 93 fL (80-100); NEUTROPHILS ABSOLUTE AUTO 6.19 K/mm3 (1.96-9.15); NEUTROPHILS PERCENT AUTO 65 % (41-73); NRBC ABSOLUTE 0.00 K/mm3 (0.00-0.02); NRBC Auto 0.0 /100 WBC (0.0-0.2); Platelet Count 200 K/mm3 (150-400); RDW Coefficient Variation 13.2 % (11.7-14.2); RDW Standard Deviation 44.9 fL (35.1-46.3)
[2025-03-26 16:46] VITALS: BP 185/100
[2025-03-26 17:08] LABS: Alanine Aminotransfer (ALT/SGP 52.0 U/L (12-78); Albumin, Blood 3.2 g/dL (3.4-5.0); Albumin/Globulin Ratio 0.9 (0.8-1.8); Anion Gap 9.0 mmol/L (3-11); Aspartate Aminotrans (AST/SGOT 23.0 U/L (12-37); Bilirubin, Total 0.8 mg/dL (0.1-1.0); Blood Urea Nitrogen 20.0 mg/dL (8-24); CO2, Blood 30.0 mmol/L (21-32); Calcium, Blood 9.3 mg/dL (8.5-10.1); Chloride, Blood 102.0 mmol/L (98-108); Creatinine, Blood 0.73 mg/dL (0.60-1.20); Globulin, Blood 3.5 g/dL (2.2-4.0); Glucose, Blood 123.0 mg/dL (70-99); Potassium, Blood 4.6 mmol/L (3.5-5.5); Sodium, Blood 136.0 mmol/L (136-145); Total Protein, Blood 6.7 g/dL (6.4-8.2)
[2025-03-26] MEDS ORDERED: Prochlorperazine Edisylate 10 mg Vial IV ONE (17:15)
[2025-03-26] MEDS ORDERED: Ipratropium/Albuterol SulF 2.5-0.5MG/3 ML Amp INH ONE (17:15)
[2025-03-26] MEDS ORDERED: OxyCODONE 10/Acetamin 325 TABLET PO ONE (17:15)
[2025-03-26 18:53] LABS: pH Blood Venous 7.38 (7.34-7.37)
== END 2025-03-26 20:27 | disposition home or self-care (01) ==
LOC: ER 14:10
PROVIDERS: Emergency Medicine; Physician Assistant
DX: J96.91 Respiratory failure, unspecified with hypoxia (principal); J44.1 Chronic obstructive pulmonary disease with (acute) exacerbation; Z91.148 Patient's other noncompliance with medication regimen for other reason; R51.9 Headache, unspecified; F17.210 Nicotine dependence, cigarettes, uncomplicated
CPT/HCPCS: 70450; 70496; 80053; 82803; 83880; 84484; 85025; 96374-59; 99285-25; A9270; J0780; Q9967

== ENCOUNTER 2025-04-23 13:36 | Emergency (ER) | payer OTHER ==
[~2025-04-23] VITALS: Ht 175.3 cm; Wt 81.7 kg
[2025-04-23] MEDS ORDERED: Morphine Sulfate 4 MG/1 ML Injection IV ONE ×3 (14:15→16:35)
[2025-04-23 14:32] LABS: BASOPHILS ABSOLUTE AUTO 0.04 K/mm3 (0.00-0.23); BASOPHILS PERCENT AUTO 0 % (0-2); EOSINOPHILS ABSOLUTE AUTO 0.08 K/mm3 (0.00-0.68); EOSINOPHILS PERCENT AUTO 1 % (0-6); Hematocrit 39.1 % (37.0-53.0); Hemoglobin 13.4 g/dL (13.5-17.5); IMMATURE GRAN ABSOLUTE AUTO 0.05 K/mm3 (0.00-0.10); IMMATURE GRAN PERCENT AUTO 1 % (0-1); LYMPHOCYTES ABSOLUTE AUTO 1.70 K/mm3 (0.84-5.20); LYMPHOCYTES PERCENT AUTO 18 % (21-46); MONOCYTES ABSOLUTE AUTO 1.51 K/mm3 (0.16-1.47); MONOCYTES PERCENT AUTO 16 % (4-13); Mean Corpuscular HGB Conc 34.3 g/dL (31.5-36.5); Mean Corpuscular Volume 94 fL (80-100); NEUTROPHILS ABSOLUTE AUTO 6.35 K/mm3 (1.96-9.15); NEUTROPHILS PERCENT AUTO 65 % (41-73); NRBC ABSOLUTE 0.00 K/mm3 (0.00-0.02); NRBC Auto 0.0 /100 WBC (0.0-0.2); Platelet Count 189 K/mm3 (150-400); RDW Coefficient Variation 13.2 % (11.7-14.2); RDW Standard Deviation 46.0 fL (35.1-46.3)
[2025-04-23 14:47] LABS: Alanine Aminotransfer (ALT/SGP 23.0 U/L (12-78); Albumin, Blood 3.1 g/dL (3.4-5.0); Albumin/Globulin Ratio 1.0 (0.8-1.8); Anion Gap 7.0 mmol/L (3-11); Aspartate Aminotrans (AST/SGOT 21.0 U/L (12-37); Bilirubin, Total 1.2 mg/dL (0.1-1.0); Blood Urea Nitrogen 17.0 mg/dL (8-24); CO2, Blood 28.0 mmol/L (21-32); Calcium, Blood 8.9 mg/dL (8.5-10.1); Chloride, Blood 102.0 mmol/L (98-108); Creatinine, Blood 0.77 mg/dL (0.60-1.20); Globulin, Blood 3.2 g/dL (2.2-4.0); Glucose, Blood 100.0 mg/dL (70-99); Potassium, Blood 4.5 mmol/L (3.5-5.5); Sodium, Blood 132.0 mmol/L (136-145); Total Protein, Blood 6.3 g/dL (6.4-8.2)
[2025-04-23] MEDS ORDERED: Albuterol 2.5 MG/3 ML VIAL INH ONE (16:35)
[2025-04-23] MEDS ORDERED: Ketorolac Tromethamine 30mg Vial IV ONE (16:35)
[2025-04-23] MEDS ORDERED: Dexamethasone Sod Phos 10 MG/ML 1ML VIAL IV ONE (16:35)
[2025-04-23 17:55] VITALS: BP 114/68
== END 2025-04-23 19:58 | disposition home or self-care (01) ==
LOC: ER 13:36
PROVIDERS: Emergency Medicine
DX: R10.11 Right upper quadrant pain (principal); Z79.82 Long term (current) use of aspirin; Z79.899 Other long term (current) drug therapy; I50.32 Chronic diastolic (congestive) heart failure; I11.0 Hypertensive heart disease with heart failure; J44.9 Chronic obstructive pulmonary disease, unspecified; F17.210 Nicotine dependence, cigarettes, uncomplicated
CPT/HCPCS: 74177; 76705; 80053; 83690; 85025; 96374; 96375; 96376; 99284-25; J1100; J1885; J2270; Q9967